=== PATIENT | female | born 1945 | race Caucasian/White ===

== ENCOUNTER 2017-03-08 14:39 | Emergency (ER) | payer OTHER ==
[~2017-03-08] VITALS: Ht 152.4 cm; Wt 46.7 kg
[~2017-03-08 14:39] MED LIST: ALEN70TA3 PO; AZAT50TA18 PO; BUDESONIDE PO; FOLI-43 PO; FURO20TA4 PO; PRO40 PO; QUET50TA13 PO; SPIR50TA26 PO; ZOLP10TA2 PO; [UNRECOGNIZED DRUG - CODE] PO; [UNRECOGNIZED DRUG - OTHER] PO
[2017-03-08 14:41] VITALS: BP_SYST 150
[2017-03-08] MEDS ORDERED: NACL 0.9% 1,000 ML IV ONE (15:21)
[2017-03-08] MEDS ORDERED: ONDANSETRON HCL 4 MG/2 ML VIAL IVP ONE (15:30)
[2017-03-08 16:00] LABS: HEMATOCRIT 41.4 % (36-48); HEMOGLOBIN 13.9 g/dL (12.0-16.0); MEAN CORPUSCULAR HEMOGLOBIN 34 pg (27-31); MEAN CORPUSCULAR HGB CONC 34 % (32-36); MEAN CORPUSCULAR VOLUME 100 fL (79.0-98.0); RED BLOOD CELL COUNT(AUTO) 4.12 MIL/uL (4.2-6.2); RED CELL DISTRIBUTION WIDTH 14.1 % (9.0-15.0)
[2017-03-08 16:02] LABS: CALCIUM 9.6 mg/dL (8.4-11.0); CREATININE 0.97 mg/dL (0.55-1.30); POTASSIUM 3.6 mmol/L (3.5-5.1)
[2017-03-08 16:04] LABS: PROTHROMBIN TIME 10.8 SECS (9.5-12.5)
[2017-03-08 16:07] LABS: ALBUMIN 3.1 g/dL (3.4-4.8); TOTAL BILIRUBIN 0.3 mg/dL (0.0-1.0); TOTAL PROTEIN, SERUM 6.9 g/dL (6.4-8.3)
[2017-03-08 16:12] LABS: PLATELET COUNT (AUTO) 77 K/uL (130-430)
[2017-03-08 16:14] LABS: BAND % (MANUAL) 1 % (0-6); BASOPHILS % (MANUAL) 0 % (0-2); EOSINOPHILS % (MANUAL) 0 % (0-7); LYMPHOCYTES % (MANUAL) 25 % (20-46); MONOCYTES % (MANUAL) 5 % (0-11)
[2017-03-08 16:17] LABS: BILIRUBIN,URINE NEGATIVE (NEGATIVE); BLOOD, URINE NEGATIVE (NEGATIVE); CLARITY/URINE CLEAR (CLEAR); COLOR,URINE YELLOW (YELLOW); GLUCOSE,URINE NEGATIVE (NEGATIVE); KETONES,URINE NEGATIVE (NEGATIVE); LEUKOCYTE ESTERASE ,URINE TRACE (NEGATIVE); NITRITE, URINE NEGATIVE (NEGATIVE); PROTEIN URINE NEGATIVE (NEGATIVE); UROBILINOGEN,URINE 0.2 (0.2-1.0)
[2017-03-08 16:26] LABS: BACTERIA,URINE FEW /HPF (None Seen); RBC,URINE NONE SEEN /HPF (0-3)
[2017-03-08 16:27] LABS: MUCUS,URINE None Seen /LPF (None Seen)
[2017-03-08] MEDS ORDERED: MORPHINE 2 MG/ML INJ. SYRINGE IVP ONE (16:30)
[2017-03-08] MEDS ORDERED: HYDROmorphone 1 MG INJ. 1 MG/ML AMPUL IVP ONE (16:30)
[2017-03-08 17:30] VITALS: BP_SYST 141
== END 2017-03-08 17:30 | disposition home or self-care (01) ==
LOC: SED 14:39
DX: R10.13 Epigastric pain (principal); F41.9 Anxiety disorder, unspecified
CPT/HCPCS: 36415; 74176; 80053; 81000; 83690; 83880; 84484; 85007; 85027; 85379; 85610; 85730; 93005; 96361; 96374; 96375; 99285; J1170; J2405; J7030

== ENCOUNTER 2017-06-17 11:21 | Emergency (ER) | payer OTHER ==
[~2017-06-17] VITALS: Ht 152.4 cm; Wt 47.6 kg
[2017-06-17 11:27] VITALS: BP_SYST 142
[2017-06-17 12:02] LABS: HEMATOCRIT 42.1 % (36-48); MEAN CORPUSCULAR HEMOGLOBIN 33 pg (27-31); MEAN CORPUSCULAR HGB CONC 33 % (32-36); MEAN CORPUSCULAR VOLUME 100 fL (79.0-98.0); PLATELET COUNT (AUTO) 72 K/uL (130-430); RED CELL DISTRIBUTION WIDTH 13.3 % (9.0-15.0)
[2017-06-17 12:10] LABS: WHITE BLOOD COUNT (AUTO) 3.7 K/uL (4.8-10.8)
[2017-06-17 12:12] LABS: CREATININE 0.76 mg/dL (0.55-1.30); POTASSIUM 3.4 mmol/L (3.5-5.1)
[2017-06-17 12:17] LABS: ALBUMIN 3.5 g/dL (3.4-4.8); INR 0.9 (0.8-1.2); PROTHROMBIN TIME 10.3 SECS (9.5-12.5); TOTAL BILIRUBIN 0.2 mg/dL (0.0-1.0)
[2017-06-17 12:27] LABS: ATYPICAL LYMPHOCYTES % 0 % (0-0); BAND % (MANUAL) 3 % (0-6); BASOPHILS % (MANUAL) 0 % (0-2); EOSINOPHILS % (MANUAL) 0 % (0-7); LYMPHOCYTES % (MANUAL) 28 % (20-46); MONOCYTES % (MANUAL) 8 % (0-11)
[2017-06-17] MEDS ORDERED: NACL 0.9% 1,000 ML IV ONE (12:30)
[2017-06-17] MEDS ORDERED: MORPHINE 2 MG/ML INJ. SYRINGE IVP ONE ×2 (12:30→14:45)
[2017-06-17] MEDS ORDERED: ONDANSETRON HCL 4 MG/2 ML VIAL IVP ONE ×2 (12:30→14:45)
[2017-06-17] MEDS ORDERED: PIPERACILLIN/TAZO 4.5 GM in NS 100 ML IV ONE (13:45)
[2017-06-17] MEDS ORDERED: VANCOMYCIN HCL 1,000 MG in NS 250 ML IV ONE (13:45)
[2017-06-17] MEDS ORDERED: PIPERACILLIN/TAZOBACTAM 4.5 GM/VIAL (ZOSYN) IV ONE (14:06)
[2017-06-17] MEDS ORDERED: VANCOMYCIN HCL 1000 MG/VIAL IV ONE (14:06)
[2017-06-17] MEDS ORDERED: IOHEXOL 100 ML IV ONE (14:52)
[2017-06-17 17:02] VITALS: BP_SYST 118
== END 2017-06-17 16:50 | disposition home or self-care (01) ==
LOC: SED 11:21
DX: R10.84 Generalized abdominal pain (principal); R19.7 Diarrhea, unspecified; R53.1 Weakness; F32.9 Major depressive disorder, single episode, unspecified; F41.9 Anxiety disorder, unspecified; K21.9 Gastro-esophageal reflux disease without esophagitis; Z79.899 Other long term (current) drug therapy; Z90.49 Acquired absence of other specified parts of digestive tract
CPT/HCPCS: 36415; 71010; 74176; 74177; 76700; 80053; 83605; 83690; 83880; 84484; 85610; 85730; 87040; 93005; 96365; 96368; 96375; 96376; 99285; J2270; J2405; J2543; J3370; J7030; J7050; Q9967

== ENCOUNTER 2017-11-23 16:02 | Emergency (ER) | payer OTHER ==
[~2017-11-23] VITALS: Ht 152.4 cm; Wt 51.3 kg
[2017-11-23 16:07] VITALS: BP_SYST 147
[2017-11-23] MEDS ORDERED: HYDROcodone/ACETAMIN 10-325 MG TAB PO ONE (17:45)
[2017-11-23 18:06] VITALS: BP_SYST 147
== END 2017-11-23 18:06 | disposition home or self-care (01) ==
LOC: SED 16:02
DX: S33.5XXA Sprain of ligaments of lumbar spine, initial encounter (principal); K59.00 Constipation, unspecified; W18.30XA Fall on same level, unspecified, initial encounter; Y93.89 Activity, other specified; Y92.090 Kitchen in other non-institutional residence as the place of occurrence of the external cause; Y99.8 Other external cause status
CPT/HCPCS: 72100-TC; 99284

== ENCOUNTER 2018-03-06 15:55 | Emergency (ER) | payer OTHER ==
[~2018-03-06] VITALS: Ht 152.4 cm; Wt 48.5 kg
[2018-03-06 15:57] VITALS: BP_SYST 134
[2018-03-06] MEDS ORDERED: NACL 0.9% 1,000 ML IV ONE (16:06)
[2018-03-06] MEDS ORDERED: ASPIRIN 81 MG TAB.CHEW PO ONE (16:15)
[2018-03-06 16:40] LABS: BASOPHILS % (AUTO) 0.8 % (0.0-2.0); EOSINOPHILS % (AUTO) 0.2 % (0.0-4.0); HEMOGLOBIN 13.7 g/dL (12.0-16.0); LYMPHOCYTES # (AUTO) 0.5 K/uL (1.0-5.5); LYMPHOCYTES % (AUTO) 12.9 % (20.5-51.5); MEAN CORPUSCULAR HEMOGLOBIN 35 pg (27-31); MEAN CORPUSCULAR HGB CONC 34 % (32-36); MEAN CORPUSCULAR VOLUME 101 fL (79.0-98.0); MONOCYTES # (AUTO) 0.3 K/uL (0.0-1.0); MONOCYTES % (AUTO) 8.3 % (1.7-9.3); NEUTROPHILS % (AUTO) 77.8 % (40.0-70.0); RED BLOOD CELL COUNT(AUTO) 3.97 MIL/uL (4.2-6.2); RED CELL DISTRIBUTION WIDTH 14.1 % (9.0-15.0); WHITE BLOOD COUNT (AUTO) 3.8 K/uL (4.8-10.8)
[2018-03-06 16:43] LABS: BILIRUBIN,URINE NEGATIVE (NEGATIVE); BLOOD, URINE 1+ (NEGATIVE); CLARITY/URINE CLEAR (CLEAR); COLOR,URINE YELLOW (YELLOW); GLUCOSE,URINE NEGATIVE (NEGATIVE); KETONES,URINE TRACE (NEGATIVE); NITRITE, URINE NEGATIVE (NEGATIVE); PH,URINE 5.5 (5.0-8.0); PROTEIN URINE NEGATIVE (NEGATIVE); UROBILINOGEN,URINE 0.2 (0.2-1.0)
[2018-03-06] MEDS ORDERED: ALBUTEROL SULFATE 0.083% 2.5 MG/3 ML VIAL.NEB IH ONE (16:45)
[2018-03-06] MEDS ORDERED: IPRATROPIUM BROM 0.5 MG/2.5 ML VIAL.NEB (ATROVENT) IH ONE (16:45)
[2018-03-06 16:50] LABS: CALCIUM 8.1 mg/dL (8.4-11.0); CREATININE 0.78 mg/dL (0.55-1.30); POTASSIUM 3.7 mmol/L (3.5-5.1)
[2018-03-06 16:53] LABS: PROTHROMBIN TIME 9.9 SECS (9.5-12.5)
[2018-03-06 16:54] LABS: LEUKOCYTE ESTERASE ,URINE TRACE (NEGATIVE)
[2018-03-06 16:56] LABS: BACTERIA,URINE FEW /HPF (None Seen); MUCUS,URINE None Seen /LPF (None Seen); RBC,URINE 0-3 /HPF (0-3)
[2018-03-06 16:56] LABS: ALBUMIN 3.1 g/dL (3.4-4.8); TOTAL BILIRUBIN 0.3 mg/dL (0.0-1.0)
[2018-03-06 17:01] LABS: PLATELET COUNT (AUTO) 74 K/uL (130-430)
[2018-03-06] MEDS ORDERED: LORazepam 2 MG/ML VIAL (FOR ER USE) IVP ONE (17:45)
[2018-03-06 19:05] VITALS: BP_SYST 126
[2018-03-08] MEDS ORDERED: QUET300T2 PO (16:49)
[2018-03-08] MEDS ORDERED: ALPR0.5T96 PO (16:49)
[2018-03-08] MEDS ORDERED: ROPI0.5T PO (16:49)
[2018-03-08] MEDS ORDERED: PRED5TAB PO (16:52)
== END 2018-03-06 19:05 | disposition home or self-care (01) ==
LOC: SED 15:55
DX: F41.9 Anxiety disorder, unspecified (principal); R06.02 Shortness of breath; R94.31 Abnormal electrocardiogram [ECG] [EKG]; K21.9 Gastro-esophageal reflux disease without esophagitis; Z79.899 Other long term (current) drug therapy
CPT/HCPCS: 36415; 71045; 80053; 81000; 82150; 82550; 83690; 84484; 85025; 85610; 85730; 93005; 94640; 96374; 99285; J2060; J7030; J7613

== ENCOUNTER 2018-03-14 09:16 | Emergency (ER) | payer OTHER ==
[~2018-03-14] VITALS: Ht 152.4 cm; Wt 49.0 kg
[~2018-03-14 09:16] MED LIST changes: +ALPR0.5T96 PO; -BUDESONIDE PO; -FURO20TA4 PO; +PRED5TAB PO; +QUET300T2 PO; -QUET50TA13 PO; +ROPI0.5T PO; -[UNRECOGNIZED DRUG - OTHER] PO
[2018-03-14 09:18] VITALS: BP_SYST 124
[2018-03-14] MEDS ORDERED: NACL 0.9% 1,000 ML IV ONE (10:00)
[2018-03-14] MEDS ORDERED: ASPIRIN 81 MG TAB.CHEW PO ONE (10:00)
[2018-03-14 10:23] LABS: BASOPHILS # (AUTO) 0.1 K/uL (0.0-0.2); EOSINOPHILS # (AUTO) 0.2 K/uL (0.0-0.4); EOSINOPHILS % (AUTO) 2.6 % (0.0-4.0); HEMATOCRIT 43.2 % (36-48); HEMOGLOBIN 14.4 g/dL (12.0-16.0); LYMPHOCYTES # (AUTO) 1.3 K/uL (1.0-5.5); MEAN CORPUSCULAR HEMOGLOBIN 34 pg (27-31); MEAN CORPUSCULAR HGB CONC 33 % (32-36); MEAN CORPUSCULAR VOLUME 101 fL (79.0-98.0); MONOCYTES # (AUTO) 0.7 K/uL (0.0-1.0); NEUTROPHILS # (AUTO) 3.7 K/uL (1.8-7.7); NEUTROPHILS % (AUTO) 61.4 % (40.0-70.0); PLATELET COUNT (AUTO) 107 K/uL (130-430); RED BLOOD CELL COUNT(AUTO) 4.28 MIL/uL (4.2-6.2); RED CELL DISTRIBUTION WIDTH 14.1 % (9.0-15.0)
[2018-03-14 10:37] LABS: CALCIUM 8.1 mg/dL (8.4-11.0); CREATININE 0.64 mg/dL (0.55-1.30); POTASSIUM 3.6 mmol/L (3.5-5.1)
[2018-03-14 10:40] LABS: PROTHROMBIN TIME 9.7 SECS (9.5-12.5)
[2018-03-14 10:41] LABS: ALBUMIN 2.9 g/dL (3.4-4.8); TOTAL BILIRUBIN 0.4 mg/dL (0.0-1.0)
[2018-03-14 11:16] VITALS: BP_SYST 123
[2018-03-17] MEDS ORDERED: FURO-150 PO (15:43)
== END 2018-03-14 11:40 | disposition home or self-care (01) ==
LOC: SED 09:16
DX: K75.4 Autoimmune hepatitis (principal); K52.9 Noninfective gastroenteritis and colitis, unspecified; R53.1 Weakness; F41.9 Anxiety disorder, unspecified; Z90.49 Acquired absence of other specified parts of digestive tract
CPT/HCPCS: 36415; 71045; 80053; 82272; 82550; 83880; 84484; 85025; 85610; 85730; 86886; 86900; 86901; 93005; 99285; J7030

== ENCOUNTER 2018-03-21 22:53 | Inpatient (IN) | payer OTHER ==
[~2018-03-21] VITALS: Ht 152.4 cm; Wt 43.1 kg
[~2018-03-21 22:53] MED LIST changes: +FURO-150 PO
[2018-03-21 23:00] VITALS: BP_SYST 123
[2018-03-21] MEDS ORDERED: NACL 0.9% 1,000 ML IV ONE (23:45)
[2018-03-21] MEDS ORDERED: ONDANSETRON HCL 4 MG/2 ML VIAL IVP ONE (23:45)
[2018-03-22] VITALS (7 sets, daily range): BP systolic 106–132
[2018-03-22 00:06] LABS: BASOPHILS # (AUTO) 0.1 K/uL (0.0-0.2); BASOPHILS % (AUTO) 2.7 % (0.0-2.0); EOSINOPHILS # (AUTO) 0.1 K/uL (0.0-0.4); EOSINOPHILS % (AUTO) 2.4 % (0.0-4.0); HEMATOCRIT 40.2 % (36-48); HEMOGLOBIN 13.5 g/dL (12.0-16.0); LYMPHOCYTES # (AUTO) 2.1 K/uL (1.0-5.5); LYMPHOCYTES % (AUTO) 42.3 % (20.5-51.5); MEAN CORPUSCULAR HEMOGLOBIN 33 pg (27-31); MEAN CORPUSCULAR HGB CONC 34 % (32-36); MEAN CORPUSCULAR VOLUME 99 fL (79.0-98.0); MONOCYTES # (AUTO) 0.6 K/uL (0.0-1.0); MONOCYTES % (AUTO) 11.3 % (1.7-9.3); NEUTROPHILS % (AUTO) 41.3 % (40.0-70.0); PLATELET COUNT (AUTO) 155 K/uL (130-430); RED BLOOD CELL COUNT(AUTO) 4.06 MIL/uL (4.2-6.2); RED CELL DISTRIBUTION WIDTH 13.7 % (9.0-15.0); WHITE BLOOD COUNT (AUTO) 4.9 K/uL (4.8-10.8)
[2018-03-22 00:18] LABS: CALCIUM 8.4 mg/dL (8.4-11.0); CREATININE 0.69 mg/dL (0.55-1.30)
[2018-03-22 00:24] LABS: ALBUMIN 3.3 g/dL (3.4-4.8); TOTAL BILIRUBIN 0.6 mg/dL (0.0-1.0)
[2018-03-22 00:38] LABS: POTASSIUM 2.6 mmol/L (3.5-5.1)
[2018-03-22] MEDS ORDERED: KCL 20 mEq in 100 mL (PREMIX) 100 ML IV ONE (00:45)
[2018-03-22] MEDS ORDERED: cefTRIAXone 1 GM in D5W 50 ML IV ONE ×2 (01:15→04:30)
[2018-03-22] MEDS ORDERED: cefTRIAXone 1 GM VIAL ONE (01:22)
[2018-03-22] MEDS ORDERED: KCL 40 mEq in 100 mL (PREMIX) 100 ML IV ONE (01:45)
[2018-03-22 01:59] LABS: BILIRUBIN,URINE NEGATIVE (NEGATIVE); BLOOD, URINE NEGATIVE (NEGATIVE); CLARITY/URINE CLEAR (CLEAR); COLOR,URINE YELLOW (YELLOW); GLUCOSE,URINE NEGATIVE (NEGATIVE); KETONES,URINE NEGATIVE (NEGATIVE); LEUKOCYTE ESTERASE ,URINE NEGATIVE (NEGATIVE); NITRITE, URINE NEGATIVE (NEGATIVE); PROTEIN URINE NEGATIVE (NEGATIVE); UROBILINOGEN,URINE 0.2 (0.2-1.0)
[2018-03-22] MEDS ORDERED: ZOLPIDEM TARTRATE 5 MG TABLET PO ONE (04:00)
[2018-03-22] MEDS ORDERED: QUEtiapine FUMARATE 100 MG TABLET PO ONE (04:00)
[2018-03-22] MEDS ORDERED: ALBUTEROL SULFATE 0.083% 2.5 MG/3 ML VIAL.NEB INH PRN (04:30)
[2018-03-22] MEDS: NACL 0.9% 1,000 ML IV SCH ×3 (05:27→23:52)
[2018-03-22] MEDS ORDERED: DILTIAZEM HCL 30 MG TABLET PO ONE (05:45)
[2018-03-22 09:24] LABS: HEMATOCRIT 37.5 % (36-48); MEAN CORPUSCULAR HEMOGLOBIN 35 pg (27-31); MEAN CORPUSCULAR HGB CONC 35 % (32-36); MEAN CORPUSCULAR VOLUME 100 fL (79.0-98.0); PLATELET COUNT (AUTO) 103 K/uL (130-430); RED BLOOD CELL COUNT(AUTO) 3.76 MIL/uL (4.2-6.2); RED CELL DISTRIBUTION WIDTH 13.5 % (9.0-15.0); WHITE BLOOD COUNT (AUTO) 3.4 K/uL (4.8-10.8)
[2018-03-22 09:47] LABS: ALBUMIN 2.8 g/dL (3.4-4.8); CALCIUM 7.9 mg/dL (8.4-11.0); CREATININE 0.6 mg/dL (0.55-1.30); POTASSIUM 3.8 mmol/L (3.5-5.1); TOTAL BILIRUBIN 0.4 mg/dL (0.0-1.0)
[2018-03-22 10:28] LABS: BAND % (MANUAL) 0 % (0-6); EOSINOPHILS % (MANUAL) 1 % (0-7); LYMPHOCYTES % (MANUAL) 50 % (20-46); MONOCYTES % (MANUAL) 6 % (0-11)
[2018-03-22 10:29] LABS: BASOPHILS % (MANUAL) 0 % (0-2)
[2018-03-22] MEDS: MORPHINE 2 MG/ML INJ. SYRINGE IVP PRN ×2 (10:47→14:55)
[2018-03-22] MEDS ORDERED: SPIRONOLACTONE 50 MG TABLET (ALDACTONE) PO SCH (14:00)
[2018-03-22] MEDS ORDERED: FUROSEMIDE 20 MG TABLET PO SCH (14:00)
[2018-03-22] MEDS ORDERED: azaTHIOprine 50 MG TABLET PO ONE (14:15)
[2018-03-22] MEDS ORDERED: PREDNISONE 5 MG TABLET PO ONE (14:15)
[2018-03-22] MEDS ORDERED: FOLIC ACID 1 MG TABLET PO ONE (14:15)
[2018-03-22] MEDS: ALPRAZolam 0.25 MG TABLET PO SCH ×2 (14:55→21:53)
[2018-03-22] MEDS: QUEtiapine FUMARATE 100 MG TABLET PO SCH (21:53)
[2018-03-22] MEDS: roPINIRole HCL 0.25 MG ( REQUIP )TABLET PO SCH (21:54)
[2018-03-22] MEDS: ZOLPIDEM TARTRATE 5 MG TABLET PO SCH (21:54)
[2018-03-23 01:33] VITALS: BP_SYST 103
[2018-03-23] MEDS: PANTOPRAZOLE SODIUM 40 MG TAB PO SCH (06:00)
[2018-03-23 07:12] LABS: BASOPHILS % (AUTO) 1.1 % (0.0-2.0); EOSINOPHILS # (AUTO) 0.1 K/uL (0.0-0.4); EOSINOPHILS % (AUTO) 2.9 % (0.0-4.0); HEMATOCRIT 34.5 % (36-48); HEMOGLOBIN 11.4 g/dL (12.0-16.0); LYMPHOCYTES # (AUTO) 1.1 K/uL (1.0-5.5); LYMPHOCYTES % (AUTO) 35.8 % (20.5-51.5); MEAN CORPUSCULAR HEMOGLOBIN 33 pg (27-31); MEAN CORPUSCULAR HGB CONC 33 % (32-36); MEAN CORPUSCULAR VOLUME 101 fL (79.0-98.0); MONOCYTES # (AUTO) 0.3 K/uL (0.0-1.0); MONOCYTES % (AUTO) 10.6 % (1.7-9.3); NEUTROPHILS # (AUTO) 1.6 K/uL (1.8-7.7); NEUTROPHILS % (AUTO) 49.6 % (40.0-70.0); PLATELET COUNT (AUTO) 90 K/uL (130-430); RED BLOOD CELL COUNT(AUTO) 3.42 MIL/uL (4.2-6.2); RED CELL DISTRIBUTION WIDTH 13.4 % (9.0-15.0); WHITE BLOOD COUNT (AUTO) 3.1 K/uL (4.8-10.8)
[2018-03-23 07:14] LABS: ALBUMIN 2.6 g/dL (3.4-4.8); CALCIUM 7.7 mg/dL (8.4-11.0); CREATININE 0.55 mg/dL (0.55-1.30); POTASSIUM 3.5 mmol/L (3.5-5.1); TOTAL BILIRUBIN 0.4 mg/dL (0.0-1.0)
[2018-03-23 08:06] VITALS: BP_SYST 126
[2018-03-23] MEDS: ALPRAZolam 0.25 MG TABLET PO SCH ×3 (09:00→21:18)
[2018-03-23] MEDS ORDERED: fentaNYL CITRATE/PF 100 MCG/2 ML AMP ONE ×2 (10:04→13:39)
[2018-03-23] MEDS ORDERED: SIMETHICONE 40 MG/0.6 ML ML ONE (10:04)
[2018-03-23] MEDS ORDERED: MIDAZOLAM HCL 5 MG/5 ML VIAL ONE (10:05)
[2018-03-23] MEDS: NACL 0.9% 1,000 ML IV SCH ×2 (10:55→20:20)
[2018-03-23 12:53] VITALS: BP_SYST 137
[2018-03-23] MEDS ORDERED: DIPHENHYDRAMINE INJ 50 MG/ML VIAL ONE (14:20)
[2018-03-23] MEDS ORDERED: DIATR MEGLU/DIATRIZ SOD 30 ML SOLUTION PO ONE (14:41)
[2018-03-23] MEDS: PREDNISONE 5 MG TABLET PO SCH (15:22)
[2018-03-23] MEDS: azaTHIOprine 50 MG TABLET PO SCH (15:27)
[2018-03-23] MEDS: FOLIC ACID 1 MG TABLET PO SCH (15:27)
[2018-03-23 16:02] VITALS: BP_SYST 138
[2018-03-23] MEDS ORDERED: IOHEXOL 100 ML IV ONE (16:44)
[2018-03-23] MEDS: SUCRALFATE 1 GM TABLET PO SCH ×2 (17:00→17:22)
[2018-03-23] MEDS: VANCOMYCIN HCL 250 MG CAPSULE PO SCH (17:22)
[2018-03-23 20:00] VITALS: BP_SYST 151
[2018-03-23] MEDS: roPINIRole HCL 0.25 MG ( REQUIP )TABLET PO SCH (21:18)
[2018-03-23] MEDS: QUEtiapine FUMARATE 100 MG TABLET PO SCH (21:18)
[2018-03-23] MEDS: ZOLPIDEM TARTRATE 5 MG TABLET PO SCH (23:24)
[2018-03-23 23:50] VITALS: BP_SYST 134
[2018-03-24] MEDS: VANCOMYCIN HCL 250 MG CAPSULE PO SCH ×5 (00:48→23:07)
[2018-03-24] MEDS: NACL 0.9% 1,000 ML IV SCH ×2 (02:44→13:33)
[2018-03-24] MEDS ORDERED: FOSAMAX 70 MG PO SCH (06:00)
[2018-03-24] MEDS: SUCRALFATE 1 GM TABLET PO SCH ×3 (06:33→17:26)
[2018-03-24] MEDS: PANTOPRAZOLE SODIUM 40 MG TAB PO SCH (06:33)
[2018-03-24] MEDS: PREDNISONE 5 MG TABLET PO SCH (09:00)
[2018-03-24] MEDS: FOLIC ACID 1 MG TABLET PO SCH (09:00)
[2018-03-24] MEDS: ALPRAZolam 0.25 MG TABLET PO SCH ×3 (09:00→22:36)
[2018-03-24] MEDS: azaTHIOprine 50 MG TABLET PO SCH (09:00)
[2018-03-24 09:01] VITALS: BP_SYST 127
[2018-03-24] MEDS: MORPHINE 4 MG/ML INJ. SYRINGE IVP PRN ×2 (09:46→16:20)
[2018-03-24 11:24] LABS: EOSINOPHILS # (AUTO) 0.1 K/uL (0.0-0.4); HEMATOCRIT 36.2 % (36-48); HEMOGLOBIN 12.2 g/dL (12.0-16.0); LYMPHOCYTES # (AUTO) 0.7 K/uL (1.0-5.5); LYMPHOCYTES % (AUTO) 19.2 % (20.5-51.5); MEAN CORPUSCULAR HEMOGLOBIN 34 pg (27-31); MEAN CORPUSCULAR HGB CONC 34 % (32-36); MEAN CORPUSCULAR VOLUME 100 fL (79.0-98.0); MONOCYTES # (AUTO) 0.3 K/uL (0.0-1.0); NEUTROPHILS # (AUTO) 2.3 K/uL (1.8-7.7); PLATELET COUNT (AUTO) 85 K/uL (130-430); RED BLOOD CELL COUNT(AUTO) 3.63 MIL/uL (4.2-6.2); RED CELL DISTRIBUTION WIDTH 13.2 % (9.0-15.0); WHITE BLOOD COUNT (AUTO) 3.4 K/uL (4.8-10.8)
[2018-03-24 11:25] LABS: BASOPHILS % (AUTO) 0.1 % (0.0-2.0); NEUTROPHILS % (AUTO) 69.7 % (40.0-70.0)
[2018-03-24 11:28] LABS: CALCIUM 7.7 mg/dL (8.4-11.0); CREATININE 0.53 mg/dL (0.55-1.30); POTASSIUM 3.2 mmol/L (3.5-5.1)
[2018-03-24 11:33] LABS: ALBUMIN 2.7 g/dL (3.4-4.8); TOTAL BILIRUBIN 0.3 mg/dL (0.0-1.0)
[2018-03-24 11:53] VITALS: BP_SYST 131
[2018-03-24] MEDS: metroNIDAZOLE 250 mg/NS 50 ML IV SCH ×2 (15:36→22:39)
[2018-03-24 16:04] VITALS: BP_SYST 123
[2018-03-24 20:00] VITALS: BP_SYST 121
[2018-03-24] MEDS: roPINIRole HCL 0.25 MG ( REQUIP )TABLET PO SCH (22:36)
[2018-03-24] MEDS: ZOLPIDEM TARTRATE 5 MG TABLET PO SCH (22:38)
[2018-03-24] MEDS: QUEtiapine FUMARATE 100 MG TABLET PO SCH (22:38)
[2018-03-25 00:07] VITALS: BP_SYST 133
[2018-03-25] MEDS: NACL 0.9% 1,000 ML IV SCH ×3 (01:24→21:25)
[2018-03-25] MEDS: MORPHINE 4 MG/ML INJ. SYRINGE IVP PRN ×5 (02:35→20:34)
[2018-03-25] MEDS: metroNIDAZOLE 250 mg/NS 50 ML IV SCH ×3 (07:13→21:25)
[2018-03-25] MEDS: PANTOPRAZOLE SODIUM 40 MG TAB PO SCH (07:13)
[2018-03-25] MEDS: VANCOMYCIN HCL 250 MG CAPSULE PO SCH ×4 (07:13→23:59)
[2018-03-25] MEDS: SUCRALFATE 1 GM TABLET PO SCH ×3 (07:14→17:47)
[2018-03-25] MEDS: ALPRAZolam 0.25 MG TABLET PO SCH ×3 (07:54→20:29)
[2018-03-25] MEDS: PREDNISONE 5 MG TABLET PO SCH (07:55)
[2018-03-25] MEDS: azaTHIOprine 50 MG TABLET PO SCH (07:55)
[2018-03-25] MEDS: FOLIC ACID 1 MG TABLET PO SCH (07:55)
[2018-03-25 09:03] VITALS: BP_SYST 137
[2018-03-25 09:56] LABS: BASOPHILS # (AUTO) 0.1 K/uL (0.0-0.2); EOSINOPHILS # (AUTO) 0.1 K/uL (0.0-0.4); EOSINOPHILS % (AUTO) 2.8 % (0.0-4.0); HEMATOCRIT 37.2 % (36-48); HEMOGLOBIN 12.6 g/dL (12.0-16.0); LYMPHOCYTES # (AUTO) 0.9 K/uL (1.0-5.5); LYMPHOCYTES % (AUTO) 27.7 % (20.5-51.5); MEAN CORPUSCULAR HEMOGLOBIN 34 pg (27-31); MEAN CORPUSCULAR HGB CONC 34 % (32-36); MEAN CORPUSCULAR VOLUME 100 fL (79.0-98.0); MONOCYTES # (AUTO) 0.3 K/uL (0.0-1.0); MONOCYTES % (AUTO) 10.2 % (1.7-9.3); NEUTROPHILS % (AUTO) 57.3 % (40.0-70.0); PLATELET COUNT (AUTO) 85 K/uL (130-430); RED BLOOD CELL COUNT(AUTO) 3.71 MIL/uL (4.2-6.2); RED CELL DISTRIBUTION WIDTH 13.4 % (9.0-15.0); WHITE BLOOD COUNT (AUTO) 3.4 K/uL (4.8-10.8)
[2018-03-25 10:07] LABS: CALCIUM 7.8 mg/dL (8.4-11.0); CREATININE 0.54 mg/dL (0.55-1.30)
[2018-03-25 10:12] LABS: ALBUMIN 2.5 g/dL (3.4-4.8); TOTAL BILIRUBIN 0.3 mg/dL (0.0-1.0)
[2018-03-25 12:00] VITALS: BP_SYST 137
[2018-03-25 12:35] VITALS: BP_SYST 123
[2018-03-25 16:23] VITALS: BP_SYST 129
[2018-03-25] MEDS: LIPASE/PROTEASE/AMYLASE 1 CAP PO SCH (17:47)
[2018-03-25 20:08] VITALS: BP_SYST 140
[2018-03-25] MEDS: roPINIRole HCL 0.25 MG ( REQUIP )TABLET PO SCH (20:27)
[2018-03-25] MEDS: QUEtiapine FUMARATE 100 MG TABLET PO SCH (20:28)
[2018-03-25] MEDS: ZOLPIDEM TARTRATE 5 MG TABLET PO SCH (20:32)
[2018-03-25] MEDS: ACETAMINOPHEN 325 MG TABLET PO PRN (20:33)
[2018-03-26 01:10] VITALS: BP_SYST 97
[2018-03-26 01:59] VITALS: BP_SYST 100
[2018-03-26] MEDS: MORPHINE 4 MG/ML INJ. SYRINGE IVP PRN ×4 (04:50→17:28)
[2018-03-26] MEDS: PANTOPRAZOLE SODIUM 40 MG TAB PO SCH (06:05)
[2018-03-26] MEDS: metroNIDAZOLE 250 mg/NS 50 ML IV SCH ×3 (06:05→21:37)
[2018-03-26] MEDS: SUCRALFATE 1 GM TABLET PO SCH ×3 (06:05→17:27)
[2018-03-26] MEDS: VANCOMYCIN HCL 250 MG CAPSULE PO SCH ×3 (06:05→17:27)
[2018-03-26] MEDS: LIPASE/PROTEASE/AMYLASE 1 CAP PO SCH ×3 (08:00→17:27)
[2018-03-26 08:25] VITALS: BP_SYST 132
[2018-03-26] MEDS: NACL 0.9% 1,000 ML IV SCH ×2 (08:47→14:35)
[2018-03-26] MEDS: FOLIC ACID 1 MG TABLET PO SCH (08:47)
[2018-03-26] MEDS: PREDNISONE 5 MG TABLET PO SCH (08:48)
[2018-03-26] MEDS: azaTHIOprine 50 MG TABLET PO SCH (08:49)
[2018-03-26] MEDS: ALPRAZolam 0.25 MG TABLET PO SCH ×3 (08:49→20:08)
[2018-03-26] MEDS: ACETAMINOPHEN 325 MG TABLET PO PRN (10:37)
[2018-03-26 12:28] VITALS: BP_SYST 141
[2018-03-26] MEDS: ONDANSETRON HCL 4 MG/2 ML VIAL IVP PRN (14:27)
[2018-03-26 16:10] VITALS: BP_SYST 134
[2018-03-26 19:05] VITALS: BP_SYST 129
[2018-03-26] MEDS: QUEtiapine FUMARATE 100 MG TABLET PO SCH (20:07)
[2018-03-26] MEDS: roPINIRole HCL 0.25 MG ( REQUIP )TABLET PO SCH (20:08)
[2018-03-26] MEDS: ZOLPIDEM TARTRATE 5 MG TABLET PO SCH (20:47)
[2018-03-27 00:50] VITALS: BP_SYST 92
[2018-03-27] MEDS: VANCOMYCIN HCL 250 MG CAPSULE PO SCH ×5 (01:00→23:52)
[2018-03-27] MEDS: MORPHINE 2 MG/ML INJ. SYRINGE IVP PRN ×4 (01:09→21:40)
[2018-03-27 02:05] VITALS: BP_SYST 97
[2018-03-27] MEDS: ACETAMINOPHEN 325 MG TABLET PO PRN (04:11)
[2018-03-27] MEDS: metroNIDAZOLE 250 mg/NS 50 ML IV SCH ×2 (06:14→13:49)
[2018-03-27] MEDS: SUCRALFATE 1 GM TABLET PO SCH ×3 (06:14→16:56)
[2018-03-27] MEDS: PANTOPRAZOLE SODIUM 40 MG TAB PO SCH (06:14)
[2018-03-27] MEDS: NACL 0.9% 1,000 ML IV SCH ×2 (06:20→13:49)
[2018-03-27 08:05] LABS: CREATININE 0.51 mg/dL (0.55-1.30)
[2018-03-27 08:10] VITALS: BP_SYST 128
[2018-03-27 08:13] LABS: CALCIUM 6.1 mg/dL (8.4-11.0); POTASSIUM 2.6 mmol/L (3.5-5.1)
[2018-03-27] MEDS ORDERED: POTASSIUM CHLORIDE 20 MEQ/PKT PACKET PO ONE (08:30)
[2018-03-27] MEDS ORDERED: KCL 40 mEq in 100 mL (PREMIX) 100 ML IV ONE (08:30)
[2018-03-27] MEDS: azaTHIOprine 50 MG TABLET PO SCH (09:00)
[2018-03-27] MEDS: ALPRAZolam 0.25 MG TABLET PO SCH ×3 (09:10→20:28)
[2018-03-27] MEDS: LIPASE/PROTEASE/AMYLASE 1 CAP PO SCH ×3 (09:10→18:25)
[2018-03-27] MEDS: PREDNISONE 5 MG TABLET PO SCH (09:10)
[2018-03-27] MEDS: FOLIC ACID 1 MG TABLET PO SCH (09:10)
[2018-03-27] MEDS: KCL 20 mEq in 100 mL (PREMIX) 100 ML IV SCH ×2 (09:27→12:10)
[2018-03-27 09:40] LABS: ALBUMIN 1.7 g/dL (3.4-4.8); BILIRUBIN,DIRECT 0.1 mg/dL (0.0-0.3); PHOSPHORUS 4.5 mg/dL (2.7-4.5); TOTAL BILIRUBIN 0.2 mg/dL (0.0-1.0)
[2018-03-27] MEDS ORDERED: CALCIUM GLUCONATE 2 GM in NS 100 ML IV ONE (10:00)
[2018-03-27] MEDS: MORPHINE 4 MG/ML INJ. SYRINGE IVP PRN ×2 (10:30→18:25)
[2018-03-27 11:24] VITALS: BP_SYST 104
[2018-03-27] MEDS: ONDANSETRON HCL 4 MG/2 ML VIAL IVP PRN (13:50)
[2018-03-27 15:29] VITALS: BP_SYST 119
[2018-03-27 19:10] VITALS: BP_SYST 128
[2018-03-27] MEDS: QUEtiapine FUMARATE 100 MG TABLET PO SCH (20:28)
[2018-03-27] MEDS: roPINIRole HCL 0.25 MG ( REQUIP )TABLET PO SCH (20:39)
[2018-03-27] MEDS: ZOLPIDEM TARTRATE 5 MG TABLET PO SCH (21:52)
[2018-03-28 00:19] VITALS: BP_SYST 98
[2018-03-28 05:52] LABS: BASOPHILS % (AUTO) 0.7 % (0.0-2.0); EOSINOPHILS # (AUTO) 0.1 K/uL (0.0-0.4); HEMATOCRIT 33.1 % (36-48); HEMOGLOBIN 11.3 g/dL (12.0-16.0); LYMPHOCYTES # (AUTO) 1.2 K/uL (1.0-5.5); LYMPHOCYTES % (AUTO) 29.3 % (20.5-51.5); MEAN CORPUSCULAR HEMOGLOBIN 34 pg (27-31); MEAN CORPUSCULAR HGB CONC 34 % (32-36); MEAN CORPUSCULAR VOLUME 100 fL (79.0-98.0); MONOCYTES # (AUTO) 0.5 K/uL (0.0-1.0); NEUTROPHILS # (AUTO) 2.2 K/uL (1.8-7.7); PLATELET COUNT (AUTO) 73 K/uL (130-430); RED BLOOD CELL COUNT(AUTO) 3.32 MIL/uL (4.2-6.2); RED CELL DISTRIBUTION WIDTH 13.3 % (9.0-15.0)
[2018-03-28] MEDS: NACL 0.9% 1,000 ML IV SCH ×3 (06:07→23:07)
[2018-03-28] MEDS: PANTOPRAZOLE SODIUM 40 MG TAB PO SCH (06:07)
[2018-03-28] MEDS: SUCRALFATE 1 GM TABLET PO SCH ×3 (06:07→16:32)
[2018-03-28] MEDS: VANCOMYCIN HCL 250 MG CAPSULE PO SCH ×4 (06:07→23:07)
[2018-03-28] MEDS: MORPHINE 2 MG/ML INJ. SYRINGE IVP PRN ×2 (06:49→12:47)
[2018-03-28 07:59] VITALS: BP_SYST 141
[2018-03-28 08:00] VITALS: BP_SYST 141
[2018-03-28] MEDS: azaTHIOprine 50 MG TABLET PO SCH (09:00)
[2018-03-28 09:03] LABS: ALBUMIN 2.4 g/dL (3.4-4.8); CALCIUM 8.4 mg/dL (8.4-11.0); CREATININE 0.6 mg/dL (0.55-1.30); TOTAL BILIRUBIN 0.2 mg/dL (0.0-1.0)
[2018-03-28] MEDS: ALPRAZolam 0.25 MG TABLET PO SCH ×3 (09:06→20:16)
[2018-03-28] MEDS: FOLIC ACID 1 MG TABLET PO SCH (09:06)
[2018-03-28] MEDS: PREDNISONE 5 MG TABLET PO SCH (09:07)
[2018-03-28] MEDS: LIPASE/PROTEASE/AMYLASE 1 CAP PO SCH ×3 (09:07→18:05)
[2018-03-28] MEDS ORDERED: POTASSIUM CHLORIDE 20 MEQ/PKT PACKET PO ONE (10:00)
[2018-03-28] MEDS ORDERED: LIDOCAINE JECT IV ONE (11:00)
[2018-03-28] MEDS ORDERED: POTASSIUM CHLORIDE IV ONE (11:00)
[2018-03-28] MEDS ORDERED: NS IV ONE (11:00)
[2018-03-28 12:34] VITALS: BP_SYST 144
[2018-03-28 16:20] VITALS: BP_SYST 130
[2018-03-28] MEDS: MORPHINE 4 MG/ML INJ. SYRINGE IVP PRN (16:32)
[2018-03-28 20:00] VITALS: BP_SYST 130
[2018-03-28] MEDS: QUEtiapine FUMARATE 100 MG TABLET PO SCH (20:16)
[2018-03-28] MEDS: roPINIRole HCL 0.25 MG ( REQUIP )TABLET PO SCH (20:16)
[2018-03-28] MEDS: ZOLPIDEM TARTRATE 5 MG TABLET PO SCH (21:01)
[2018-03-29 00:40] VITALS: BP_SYST 112
[2018-03-29] MEDS: MORPHINE 4 MG/ML INJ. SYRINGE IVP PRN ×3 (04:23→13:29)
[2018-03-29] MEDS: PANTOPRAZOLE SODIUM 40 MG TAB PO SCH (06:08)
[2018-03-29] MEDS: SUCRALFATE 1 GM TABLET PO SCH ×3 (06:08→16:09)
[2018-03-29] MEDS: VANCOMYCIN HCL 250 MG CAPSULE PO SCH ×3 (06:08→18:22)
[2018-03-29] MEDS: ALPRAZolam 0.25 MG TABLET PO SCH ×2 (08:24→14:26)
[2018-03-29] MEDS: FOLIC ACID 1 MG TABLET PO SCH (08:24)
[2018-03-29] MEDS: PREDNISONE 5 MG TABLET PO SCH (08:24)
[2018-03-29] MEDS: LIPASE/PROTEASE/AMYLASE 1 CAP PO SCH ×3 (08:24→18:22)
[2018-03-29] MEDS: azaTHIOprine 50 MG TABLET PO SCH (08:25)
[2018-03-29] MEDS: NACL 0.9% 1,000 ML IV SCH ×2 (08:38→16:10)
[2018-03-29 09:27] LABS: BASOPHILS % (AUTO) 0.4 % (0.0-2.0); EOSINOPHILS # (AUTO) 0.1 K/uL (0.0-0.4); EOSINOPHILS % (AUTO) 2.1 % (0.0-4.0); HEMATOCRIT 39.8 % (36-48); HEMOGLOBIN 13.5 g/dL (12.0-16.0); LYMPHOCYTES # (AUTO) 1.2 K/uL (1.0-5.5); LYMPHOCYTES % (AUTO) 31.9 % (20.5-51.5); MEAN CORPUSCULAR HEMOGLOBIN 34 pg (27-31); MEAN CORPUSCULAR HGB CONC 34 % (32-36); MEAN CORPUSCULAR VOLUME 101 fL (79.0-98.0); MONOCYTES # (AUTO) 0.4 K/uL (0.0-1.0); MONOCYTES % (AUTO) 11.5 % (1.7-9.3); NEUTROPHILS # (AUTO) 2.1 K/uL (1.8-7.7); NEUTROPHILS % (AUTO) 54.1 % (40.0-70.0); PLATELET COUNT (AUTO) 67 K/uL (130-430); RED BLOOD CELL COUNT(AUTO) 3.96 MIL/uL (4.2-6.2); RED CELL DISTRIBUTION WIDTH 13.3 % (9.0-15.0); WHITE BLOOD COUNT (AUTO) 3.8 K/uL (4.8-10.8)
[2018-03-29 09:34] LABS: ALBUMIN 2.9 g/dL (3.4-4.8); CALCIUM 8.8 mg/dL (8.4-11.0); CREATININE 0.56 mg/dL (0.55-1.30); POTASSIUM 3.9 mmol/L (3.5-5.1); TOTAL BILIRUBIN 0.4 mg/dL (0.0-1.0)
[2018-03-29 11:28] VITALS: BP_SYST 129
[2018-03-29 15:29] VITALS: BP_SYST 124
[2018-03-29 15:39] VITALS: BP_SYST 124
== END 2018-03-29 18:38 | disposition home or self-care (01) | DRG 371 ==
LOC: SED 22:53 → STU 03-22 01:43 → SMU 03-22 18:12
PROVIDERS: ADMIT Internal Medicine; ATTEND Internal Medicine
PROC: 0DB78ZX Excision of Stomach, Pylorus, Via Natural or Artificial Opening Endoscopic, Diagnostic (ICD-10-PCS; 2018-03-23)
PROC: 0DB98ZX Excision of Duodenum, Via Natural or Artificial Opening Endoscopic, Diagnostic (ICD-10-PCS; principal; 2018-03-23 13:15)
DX: A04.72 Enterocolitis due to Clostridium difficile, not specified as recurrent (principal); E43 Unspecified severe protein-calorie malnutrition; N39.0 Urinary tract infection, site not specified; Z68.1 Body mass index [BMI] 19.9 or less, adult; K75.4 Autoimmune hepatitis; I10 Essential (primary) hypertension; K21.9 Gastro-esophageal reflux disease without esophagitis; K86.89 Other specified diseases of pancreas; K29.80 Duodenitis without bleeding; F32.9 Major depressive disorder, single episode, unspecified; F41.9 Anxiety disorder, unspecified; E87.6 Hypokalemia; K25.9 Gastric ulcer, unspecified as acute or chronic, without hemorrhage or perforation; K29.60 Other gastritis without bleeding; K44.9 Diaphragmatic hernia without obstruction or gangrene; Z87.440 Personal history of urinary (tract) infections; Z79.899 Other long term (current) drug therapy; Z90.49 Acquired absence of other specified parts of digestive tract
CPT/HCPCS: 36415; 43239; 80048; 80053; 80076; 81003; 82306; 83605; 83690-TC; 83735-TC; 83970; 84100-TC; 85007; 85025; 85027; 87040-TC; 87081; 87230-TC; 88305; 88312; 88313; 93005; 96365; 96368; 96375; 99285; J0610; J0696; J1200; J2250; J2270; J2405; J3010; J3480; J3490; J7030; J7050; J7500; J7512; Q9964; Q9967

== ENCOUNTER 2018-05-11 16:41 | Inpatient (IN) | payer OTHER ==
[~2018-05-11] VITALS: Ht 152.4 cm; Wt 45.4 kg
[~2018-05-11 16:41] MED LIST changes: -ALEN70TA3 PO; +ALPR0.5T PO; -ALPR0.5T96 PO; -AZAT50TA18 PO; -SPIR50TA26 PO
[2018-05-11 16:45] VITALS: BP_SYST 128
[2018-05-11] MEDS ORDERED: LORazepam 2 MG/ML VIAL (FOR ER USE) IVP ONE (17:00)
[2018-05-11] MEDS ORDERED: ASPIRIN 81 MG TAB.CHEW PO ONE (17:00)
[2018-05-11 17:14] LABS: BASOPHILS # (AUTO) 0.1 K/uL (0.0-0.2); BASOPHILS % (AUTO) 1.4 % (0.0-2.0); EOSINOPHILS % (AUTO) 0.4 % (0.0-4.0); HEMATOCRIT 43.4 % (36-48); HEMOGLOBIN 14.6 g/dL (12.0-16.0); LYMPHOCYTES # (AUTO) 0.7 K/uL (1.0-5.5); LYMPHOCYTES % (AUTO) 14.7 % (20.5-51.5); MEAN CORPUSCULAR HEMOGLOBIN 33 pg (27-31); MEAN CORPUSCULAR HGB CONC 34 % (32-36); MEAN CORPUSCULAR VOLUME 97 fL (79.0-98.0); MONOCYTES # (AUTO) 0.1 K/uL (0.0-1.0); MONOCYTES % (AUTO) 3.1 % (1.7-9.3); NEUTROPHILS # (AUTO) 3.9 K/uL (1.8-7.7); NEUTROPHILS % (AUTO) 80.4 % (40.0-70.0); PLATELET COUNT (AUTO) 123 K/uL (130-430); RED BLOOD CELL COUNT(AUTO) 4.46 MIL/uL (4.2-6.2); WHITE BLOOD COUNT (AUTO) 4.8 K/uL (4.8-10.8)
[2018-05-11 17:31] LABS: CALCIUM 8.9 mg/dL (8.4-11.0); CREATININE 0.69 mg/dL (0.55-1.30); POTASSIUM 3.3 mmol/L (3.5-5.1)
[2018-05-11 17:34] LABS: INR 1.1 (0.8-1.2); PROTHROMBIN TIME 10.9 SECS (9.5-12.5)
[2018-05-11 17:37] LABS: ALBUMIN 3.6 g/dL (3.4-4.8); TOTAL BILIRUBIN 0.5 mg/dL (0.0-1.0)
[2018-05-11 18:01] LABS: CKMB RELATIVE INDEX 2.2 (0.0-2.9); CREATINE KINASE MB 7.2 ng/mL (0-3.6)
[2018-05-11] MEDS ORDERED: MORPHINE 2 MG/ML INJ. SYRINGE IVP ONE (18:15)
[2018-05-11] MEDS ORDERED: PROCHLORPERAZINE EDISYLATE 10 MG/2 ML VIAL IVP ONE (18:15)
[2018-05-11] MEDS ORDERED: DIPHENHYDRAMINE INJ 50 MG/ML VIAL IVP ONE (18:45)
[2018-05-11] MEDS ORDERED: DIPHENHYDRAMINE INJ 50 MG/ML VIAL ONE (18:51)
[2018-05-11 19:48] VITALS: BP_SYST 113
[2018-05-11] MEDS: ALPRAZolam 0.25 MG TABLET PO SCH (21:00)
[2018-05-11] MEDS ORDERED: ACETAMINOPHEN 325 MG TABLET PO PRN (23:15)
[2018-05-11] MEDS ORDERED: HYDROcodone/ACETAMIN 5-325 MG TAB (NORCO/ VICODIN) PO PRN (23:15)
[2018-05-11] MEDS ORDERED: ONDANSETRON HCL 4 MG/2 ML VIAL IVP PRN (23:15)
[2018-05-11] MEDS ORDERED: ALBUTEROL SULFATE 0.083% 2.5 MG/3 ML VIAL.NEB INH PRN (23:15)
[2018-05-11] MEDS ORDERED: ALPRAZolam 0.25 MG TABLET PO SCH (23:30)
[2018-05-12] VITALS (7 sets, daily range): BP systolic 104–116
[2018-05-12 07:04] LABS: EOSINOPHILS # (AUTO) 0.1 K/uL (0.0-0.4); EOSINOPHILS % (AUTO) 2.9 % (0.0-4.0); HEMATOCRIT 38.1 % (36-48); HEMOGLOBIN 13.3 g/dL (12.0-16.0); LYMPHOCYTES # (AUTO) 1.7 K/uL (1.0-5.5); LYMPHOCYTES % (AUTO) 43.7 % (20.5-51.5); MEAN CORPUSCULAR HEMOGLOBIN 34 pg (27-31); MEAN CORPUSCULAR HGB CONC 35 % (32-36); MEAN CORPUSCULAR VOLUME 99 fL (79.0-98.0); MONOCYTES # (AUTO) 0.5 K/uL (0.0-1.0); MONOCYTES % (AUTO) 13.6 % (1.7-9.3); NEUTROPHILS # (AUTO) 1.5 K/uL (1.8-7.7); NEUTROPHILS % (AUTO) 38.8 % (40.0-70.0); RED BLOOD CELL COUNT(AUTO) 3.86 MIL/uL (4.2-6.2); WHITE BLOOD COUNT (AUTO) 3.8 K/uL (4.8-10.8)
[2018-05-12 07:17] LABS: ANION GAP 9 (5-15); CALCIUM 8.5 mg/dL (8.4-11.0); CHLORIDE 105 mmol/L (98-107); CREATININE 0.62 mg/dL (0.55-1.30); GLUCOSE 99 mg/dL (70-99); SODIUM SERUM 143 mmol/L (136-145); UREA NITROGEN, BLOOD 8 mg/dL (8-21)
[2018-05-12 07:26] LABS: GFR AFRICAN AMERICAN 122 mL/min (>90)
[2018-05-12 07:28] LABS: POTASSIUM 2.7 mmol/L (3.5-5.1)
[2018-05-12 07:37] LABS: ALANINE AMINOTRANSFERASE 20 U/L (12-78); ASPARTATE AMINOTRANSFERASE 38 U/L (10-37); TOTAL BILIRUBIN 0.4 mg/dL (0.0-1.0)
[2018-05-12] MEDS ORDERED: POTASSIUM CHLORIDE 20 MEQ TAB.PRT.SR PO ONE ×2 (08:30→19:51)
[2018-05-12] MEDS ORDERED: KCL 40 mEq in 100 mL (PREMIX) 100 ML IV ONE (08:30)
[2018-05-12 08:59] LABS: CALCIUM 8.7 mg/dL (8.4-11.0); CREATININE 0.81 mg/dL (0.55-1.30)
[2018-05-12] MEDS ORDERED: ASPIRIN 81 MG TAB.CHEW PO SCH (09:00)
[2018-05-12] MEDS ORDERED: POTASSIUM CHLORIDE 40 MEQ in NS 250 ML IV ONE (09:00)
[2018-05-12] MEDS ORDERED: SPIRONOLACTONE 25 MG TABLET (ALDACTONE) PO SCH (09:00)
[2018-05-12] MEDS ORDERED: PANTOPRAZOLE SODIUM 40 MG TAB PO SCH (09:00)
[2018-05-12] MEDS ORDERED: FOLIC ACID 1 MG TABLET PO SCH (09:00)
[2018-05-12] MEDS ORDERED: ENOXAPARIN SODIUM 40 MG/0.4 ML SYRINGE SUBCUT SCH (09:00)
[2018-05-12] MEDS: ALPRAZolam 0.25 MG TABLET PO SCH ×2 (09:17→15:10)
[2018-05-12 09:27] LABS: POTASSIUM 2.9 mmol/L (3.5-5.1)
[2018-05-12 11:02] LABS: PLATELET COUNT (AUTO) 83 K/uL (130-430)
[2018-05-12] MEDS ORDERED: MORPHINE 2 MG/ML INJ. SYRINGE IVP PRN (17:15)
[2018-05-12] MEDS ORDERED: POTASSIUM CHLORIDE 20 MEQ TAB.PRT.SR ONE (17:19)
[2018-05-12] MEDS ORDERED: MORPHINE 2 MG/ML INJ. SYRINGE ONE (17:20)
[2018-05-12 19:17] LABS: CALCIUM 8.2 mg/dL (8.4-11.0); CREATININE 0.71 mg/dL (0.55-1.30); POTASSIUM 4.7 mmol/L (3.5-5.1)
[2018-05-12] MEDS ORDERED: roPINIRole HCL 0.25 MG ( REQUIP )TABLET PO SCH (21:00)
[2018-05-12] MEDS ORDERED: QUEtiapine FUMARATE 100 MG TABLET PO SCH ×2 (21:00)
[2018-05-12] MEDS ORDERED: ZOLPIDEM TARTRATE 5 MG TABLET PO SCH (21:00)
== END 2018-05-12 20:30 | disposition home or self-care (01) | DRG 313 ==
LOC: SED 16:41 → STU 18:57
PROVIDERS: ADMIT Internal Medicine; ATTEND Internal Medicine
DX: R07.89 Other chest pain (principal); K21.9 Gastro-esophageal reflux disease without esophagitis; E87.6 Hypokalemia; F32.9 Major depressive disorder, single episode, unspecified; D69.6 Thrombocytopenia, unspecified; F45.8 Other somatoform disorders; K75.4 Autoimmune hepatitis; G89.29 Other chronic pain; M54.9 Dorsalgia, unspecified; F41.1 Generalized anxiety disorder; Z82.49 Family history of ischemic heart disease and other diseases of the circulatory system; Z79.899 Other long term (current) drug therapy; Z90.49 Acquired absence of other specified parts of digestive tract
CPT/HCPCS: 36415; 71045; 80048; 80053; 82550-TC; 82553-TC; 84484; 85025; 85610-TC; 85730-TC; 93005; 96374; 96375; 99285; J0780; J1200; J1650; J2060; J2270; J3480; J7040; J7050

== ENCOUNTER 2018-07-30 17:44 | Inpatient (IN) | payer OTHER ==
[~2018-07-30] VITALS: Ht 152.4 cm; Wt 51.7 kg
[~2018-07-30 17:44] MED LIST changes: -FURO-150 PO; -PRED5TAB PO; -[UNRECOGNIZED DRUG - CODE] PO
[2018-07-30 17:58] VITALS: BP_SYST 145
[2018-07-30] MEDS ORDERED: ACETAMINOPHEN 500 MG TABLET PO ONE (18:15)
[2018-07-30] MEDS ORDERED: NACL 0.9% 1,000 ML IV ONE (18:15)
[2018-07-30] MEDS ORDERED: ACETAMINOPHEN 500 MG TABLET ONE (18:21)
[2018-07-30] MEDS ORDERED: [UNRECOGNIZED DRUG - CODE] PO (18:33)
[2018-07-30 18:42] LABS: HEMATOCRIT 40.6 % (36-48); HEMOGLOBIN 13.3 g/dL (12.0-16.0); MEAN CORPUSCULAR HEMOGLOBIN 32 pg (27-31); MEAN CORPUSCULAR HGB CONC 33 % (32-36); MEAN CORPUSCULAR VOLUME 97 fL (79.0-98.0); PLATELET COUNT (AUTO) 165 K/uL (130-430); RED BLOOD CELL COUNT(AUTO) 4.19 MIL/uL (4.2-6.2); RED CELL DISTRIBUTION WIDTH 15.6 % (9.0-15.0)
[2018-07-30 18:49] LABS: INR 1.1 (0.8-1.2); PROTHROMBIN TIME 10.6 SECS (9.5-12.5); WHITE BLOOD COUNT (AUTO) 1.1 K/uL (4.8-10.8)
[2018-07-30 18:51] LABS: ATYPICAL LYMPHOCYTES % 6 % (0-0); BAND % (MANUAL) 0 % (0-6); BASOPHILS % (MANUAL) 0 % (0-2); EOSINOPHILS % (MANUAL) 0 % (0-7); LYMPHOCYTES % (MANUAL) 88 % (20-46); MONOCYTES % (MANUAL) 4 % (0-11)
[2018-07-30 18:59] LABS: CREATININE 0.83 mg/dL (0.55-1.30); POTASSIUM 3.8 mmol/L (3.5-5.1)
[2018-07-30] MEDS ORDERED: cefTRIAXone 1 GM in D5W 50 ML IV ONE (19:00)
[2018-07-30 19:03] LABS: TOTAL BILIRUBIN 1.2 mg/dL (0.0-1.0)
[2018-07-30] MEDS ORDERED: cefTRIAXone 1 GM VIAL ONE (19:22)
[2018-07-30 19:34] LABS: BILIRUBIN,URINE NEGATIVE (NEGATIVE); COLOR,URINE YELLOW (YELLOW); GLUCOSE,URINE NEGATIVE (NEGATIVE); KETONES,URINE NEGATIVE (NEGATIVE); NITRITE, URINE POSITIVE (NEGATIVE); PH,URINE 5.5 (5.0-8.0); PROTEIN URINE NEGATIVE (NEGATIVE); UROBILINOGEN,URINE 0.2 (0.2-1.0)
[2018-07-30 19:42] LABS: BLOOD, URINE TRACE (NEGATIVE); CLARITY/URINE HAZY (CLEAR); LEUKOCYTE ESTERASE ,URINE TRACE (NEGATIVE)
[2018-07-30 19:45] LABS: BACTERIA,URINE MANY /HPF (None Seen); MUCUS,URINE None Seen /LPF (None Seen); RBC,URINE 0-3 /HPF (0-3)
[2018-07-30] MEDS ORDERED: ONDANSETRON HCL 4 MG/2 ML VIAL IVP PRN ×2 (20:00→21:23)
[2018-07-30] MEDS ORDERED: FIORCET PO PRN (20:30)
[2018-07-30] MEDS ORDERED: ACETAMINOPHEN 325 MG TABLET PO PRN (21:00)
[2018-07-30] MEDS ORDERED: NACL 0.9% 1,000 ML IV SCH (21:00)
[2018-07-30 21:16] VITALS: BP_SYST 109
[2018-07-30 21:27] VITALS: BP_SYST 109
[2018-07-30] MEDS ORDERED: VANCOMYCIN HCL 1 GM/NS PREMIX 250 ML IV ONE (22:00)
[2018-07-30] MEDS: ALPRAZolam 0.25 MG TABLET PO SCH (22:07)
[2018-07-30] MEDS: metroNIDAZOLE 500 MG TABLET PO SCH (22:18)
[2018-07-30] MEDS: QUEtiapine FUMARATE 100 MG TABLET PO SCH (22:19)
[2018-07-30] MEDS: roPINIRole HCL 0.25 MG ( REQUIP )TABLET PO SCH (22:19)
[2018-07-30] MEDS ORDERED: VANCOMYCIN HCL 1000 MG/VIAL IV ONE (22:53)
[2018-07-30] MEDS ORDERED: CEFEPIME 1 GM/VIAL (MAXIPIME) ONE (22:53)
[2018-07-30] MEDS: CEFEPIME 1 GM in D5W 50 ML IV SCH (23:09)
[2018-07-30 23:54] VITALS: BP_SYST 78
[2018-07-31] VITALS (21 sets, daily range): BP systolic 84–174
[2018-07-31] MEDS ORDERED: NACL 0.9% 1,000 ML IV ONE (00:15)
[2018-07-31] MEDS: ACETAMINOPHEN 325 MG TABLET PO PRN ×3 (00:30→20:50)
[2018-07-31] MEDS ORDERED: FLUCONAZOLE 200 mg/ NS 100 ML IV SCH (01:30)
[2018-07-31] MEDS ORDERED: NOREPINEPHRINE 4 MG/4 ML VIAL IV ONE ×3 (01:54→06:45)
[2018-07-31] MEDS: NOREPINEPHRINE BITARTRATE 4 MG in D5W 246 ML IV PRN ×3 (02:01→13:41)
[2018-07-31] MEDS: NACL 0.9% 1,000 ML IV SCH ×3 (02:02→18:37)
[2018-07-31 06:58] LABS: CALCIUM 7.3 mg/dL (8.4-11.0); CREATININE 0.9 mg/dL (0.55-1.30); POTASSIUM 3.4 mmol/L (3.5-5.1)
[2018-07-31 06:59] LABS: ALBUMIN 2.1 g/dL (3.4-4.8); TOTAL BILIRUBIN 1.4 mg/dL (0.0-1.0)
[2018-07-31 07:01] LABS: HEMATOCRIT 36.9 % (36-48); HEMOGLOBIN 12.1 g/dL (12.0-16.0); MEAN CORPUSCULAR HEMOGLOBIN 32 pg (27-31); MEAN CORPUSCULAR HGB CONC 33 % (32-36); MEAN CORPUSCULAR VOLUME 98 fL (79.0-98.0); PLATELET COUNT (AUTO) 153 K/uL (130-430); RED BLOOD CELL COUNT(AUTO) 3.77 MIL/uL (4.2-6.2); RED CELL DISTRIBUTION WIDTH 15.7 % (9.0-15.0)
[2018-07-31 07:07] LABS: WHITE BLOOD COUNT (AUTO) 1.2 K/uL (4.8-10.8)
[2018-07-31] MEDS: PANTOPRAZOLE SODIUM 40 MG TAB PO SCH (08:52)
[2018-07-31] MEDS: FOLIC ACID 1 MG TABLET PO SCH (08:53)
[2018-07-31] MEDS: metroNIDAZOLE 500 MG TABLET PO SCH ×4 (08:53→20:49)
[2018-07-31] MEDS: ALPRAZolam 0.25 MG TABLET PO SCH ×3 (08:53→20:51)
[2018-07-31] MEDS ORDERED: PANTOPRAZOLE SODIUM 40 MG TAB PO SCH (09:00)
[2018-07-31] MEDS ORDERED: FILGRASTIM 300 MCG/ML VIAL SUBCUT SCH (09:00)
[2018-07-31 09:41] LABS: ATYPICAL LYMPHOCYTES % 7 % (0-0); BASOPHILS % (MANUAL) 0 % (0-2); EOSINOPHILS % (MANUAL) 0 % (0-7); LYMPHOCYTES % (MANUAL) 87 % (20-46); MONOCYTES % (MANUAL) 4 % (0-11)
[2018-07-31] MEDS ORDERED: POTASSIUM CHLORIDE 20 MEQ TAB.PRT.SR PO ONE (09:45)
[2018-07-31] MEDS ORDERED: INSULIN ASPART 100 UNITS/ML, 10 ML VIAL (NovoLOG) SUBCUT PRN (09:45)
[2018-07-31] MEDS ORDERED: DEXTROSE 50%-WATER 50 ML DISP.SYRIN IVP PRN ×2 (10:00)
[2018-07-31] MEDS ORDERED: GLUCOSE 15 GM GEL (in 37.5 GM TUBE) PO PRN ×2 (10:00)
[2018-07-31] MEDS: CEFEPIME 1 GM in D5W 50 ML IV SCH (10:22)
[2018-07-31] MEDS: MORPHINE 2 MG/ML INJ. SYRINGE IVP PRN ×2 (10:30→15:43)
[2018-07-31] MEDS ORDERED: FILGRASTIM 300 MCG/ML VIAL SUBCUT ONE (11:15)
[2018-07-31] MEDS: CEFEPIME 2 GM in D5W 100 ML IV SCH ×2 (13:36→21:32)
[2018-07-31] MEDS: QUEtiapine FUMARATE 100 MG TABLET PO SCH (20:51)
[2018-07-31] MEDS: roPINIRole HCL 0.25 MG ( REQUIP )TABLET PO SCH (20:51)
[2018-07-31] MEDS: ZOLPIDEM TARTRATE 5 MG TABLET PO PRN (20:54)
[2018-07-31] MEDS: VANCOMYCIN HCL 1 GM/NS PREMIX 250 ML IV SCH (22:33)
[2018-08-01] VITALS (24 sets, daily range): BP systolic 104–185
[2018-08-01] MEDS: NACL 0.9% 1,000 ML IV SCH ×3 (01:36→19:52)
[2018-08-01] MEDS: MORPHINE 2 MG/ML INJ. SYRINGE IVP PRN ×3 (05:07→18:37)
[2018-08-01] MEDS: CEFEPIME 2 GM in D5W 100 ML IV SCH ×3 (05:30→21:10)
[2018-08-01 06:52] LABS: ALBUMIN 1.7 g/dL (3.4-4.8); CALCIUM 7.7 mg/dL (8.4-11.0); CREATININE 0.67 mg/dL (0.55-1.30); POTASSIUM 3.5 mmol/L (3.5-5.1)
[2018-08-01 07:06] LABS: HEMATOCRIT 30.1 % (36-48); HEMOGLOBIN 10.2 g/dL (12.0-16.0); MEAN CORPUSCULAR HEMOGLOBIN 32 pg (27-31); MEAN CORPUSCULAR HGB CONC 34 % (32-36); MEAN CORPUSCULAR VOLUME 96 fL (79.0-98.0); PLATELET COUNT (AUTO) 76 K/uL (130-430); RED BLOOD CELL COUNT(AUTO) 3.15 MIL/uL (4.2-6.2); RED CELL DISTRIBUTION WIDTH 15.5 % (9.0-15.0)
[2018-08-01 07:15] LABS: WHITE BLOOD COUNT (AUTO) 0.7 K/uL (4.8-10.8)
[2018-08-01] MEDS: ALPRAZolam 0.25 MG TABLET PO SCH ×3 (08:52→21:11)
[2018-08-01] MEDS: FOLIC ACID 1 MG TABLET PO SCH (08:52)
[2018-08-01] MEDS: PANTOPRAZOLE SODIUM 40 MG TAB PO SCH (08:52)
[2018-08-01 08:53] LABS: BASOPHILS % (MANUAL) 0 % (0-2); EOSINOPHILS % (MANUAL) 0 % (0-7); LYMPHOCYTES % (MANUAL) 92 % (20-46); MONOCYTES % (MANUAL) 4 % (0-11)
[2018-08-01] MEDS: metroNIDAZOLE 500 MG TABLET PO SCH ×4 (08:53→21:12)
[2018-08-01] MEDS: FILGRASTIM 480 MCG/VIAL SUBCUT SCH (08:55)
[2018-08-01] MEDS: ENOXAPARIN SODIUM 40 MG/0.4 ML SYRINGE SUBCUT SCH (08:55)
[2018-08-01] MEDS ORDERED: FILGRASTIM 300 MCG/ML VIAL SUBCUT SCH (09:00)
[2018-08-01] MEDS ORDERED: NACL 0.9% 1,000 ML IV ONE (09:30)
[2018-08-01] MEDS: ACETAMINOPHEN 325 MG TABLET PO PRN (11:32)
[2018-08-01] MEDS: QUEtiapine FUMARATE 100 MG TABLET PO SCH (21:11)
[2018-08-01] MEDS: roPINIRole HCL 0.25 MG ( REQUIP )TABLET PO SCH (21:11)
[2018-08-01] MEDS: OSELTAMIVIR PHOSPHATE 75 MG CAPSULE PO SCH (21:12)
[2018-08-01] MEDS: VANCOMYCIN HCL 1 GM/NS PREMIX 250 ML IV SCH (23:12)
[2018-08-02] VITALS (15 sets, daily range): BP systolic 99–179
[2018-08-02] MEDS: NACL 0.9% 1,000 ML IV SCH ×3 (01:30→16:31)
[2018-08-02] MEDS: MORPHINE 2 MG/ML INJ. SYRINGE IVP PRN ×5 (03:35→21:45)
[2018-08-02] MEDS: CEFEPIME 2 GM in D5W 100 ML IV SCH ×3 (05:02→22:59)
[2018-08-02 06:58] LABS: ALBUMIN 1.8 g/dL (3.4-4.8); CALCIUM 8.1 mg/dL (8.4-11.0); CREATININE 0.59 mg/dL (0.55-1.30); TOTAL BILIRUBIN 0.9 mg/dL (0.0-1.0)
[2018-08-02 06:59] LABS: POTASSIUM 3.5 mmol/L (3.5-5.1)
[2018-08-02] MEDS: ACETAMINOPHEN 325 MG TABLET PO PRN (07:36)
[2018-08-02 07:52] LABS: BASOPHILS % (AUTO) 0.1 % (0.0-2.0); EOSINOPHILS % (AUTO) 0.3 % (0.0-4.0); HEMATOCRIT 33.6 % (36-48); HEMOGLOBIN 11.1 g/dL (12.0-16.0); LYMPHOCYTES # (AUTO) 0.9 K/uL (1.0-5.5); LYMPHOCYTES % (AUTO) 88.9 % (20.5-51.5); MEAN CORPUSCULAR HEMOGLOBIN 32 pg (27-31); MEAN CORPUSCULAR HGB CONC 33 % (32-36); MEAN CORPUSCULAR VOLUME 97 fL (79.0-98.0); MONOCYTES # (AUTO) 0.1 K/uL (0.0-1.0); PLATELET COUNT (AUTO) 74 K/uL (130-430); RED BLOOD CELL COUNT(AUTO) 3.48 MIL/uL (4.2-6.2); RED CELL DISTRIBUTION WIDTH 15.8 % (9.0-15.0)
[2018-08-02 08:43] LABS: NEUTROPHILS % (AUTO) 1.7 % (40.0-70.0)
[2018-08-02] MEDS: METOPROLOL TARTRATE 25 MG TABLET PO SCH ×2 (09:00→20:21)
[2018-08-02] MEDS: FOLIC ACID 1 MG TABLET PO SCH (09:09)
[2018-08-02] MEDS: metroNIDAZOLE 500 MG TABLET PO SCH ×4 (09:09→20:18)
[2018-08-02] MEDS: OSELTAMIVIR PHOSPHATE 75 MG CAPSULE PO SCH ×2 (09:10→20:19)
[2018-08-02] MEDS: PANTOPRAZOLE SODIUM 40 MG TAB PO SCH (09:10)
[2018-08-02] MEDS: ALPRAZolam 0.25 MG TABLET PO SCH ×3 (09:10→20:19)
[2018-08-02] MEDS: ENOXAPARIN SODIUM 40 MG/0.4 ML SYRINGE SUBCUT SCH (09:11)
[2018-08-02] MEDS: FILGRASTIM 480 MCG/VIAL SUBCUT SCH (09:12)
[2018-08-02] MEDS ORDERED: DEXTROSE 50% JECT 50 ML DISP.SYRIN IVP PRN (09:15)
[2018-08-02] MEDS: PREDNISONE 20 MG TABLET PO SCH (09:22)
[2018-08-02] MEDS: INSULIN REGULAR, HUMAN 100 UNITS/ML, 10 ML VIAL (novoLIN R) SUBCUT PRN ×2 (09:51→17:51)
[2018-08-02] MEDS: roPINIRole HCL 0.25 MG ( REQUIP )TABLET PO SCH (20:19)
[2018-08-02] MEDS: ZOLPIDEM TARTRATE 5 MG TABLET PO PRN (21:58)
[2018-08-03] MEDS: NACL 0.9% 1,000 ML IV SCH ×3 (01:30→16:47)
[2018-08-03 01:41] VITALS: BP_SYST 112
[2018-08-03] MEDS: CEFEPIME 2 GM in D5W 100 ML IV SCH ×2 (05:58→14:03)
[2018-08-03] MEDS: MORPHINE 2 MG/ML INJ. SYRINGE IVP PRN ×3 (06:47→16:46)
[2018-08-03 08:03] LABS: BASOPHILS % (AUTO) 0.8 % (0.0-2.0); EOSINOPHILS % (AUTO) 0.2 % (0.0-4.0); HEMATOCRIT 28.5 % (36-48); HEMOGLOBIN 9.5 g/dL (12.0-16.0); LYMPHOCYTES # (AUTO) 0.7 K/uL (1.0-5.5); LYMPHOCYTES % (AUTO) 85.8 % (20.5-51.5); MEAN CORPUSCULAR HEMOGLOBIN 32 pg (27-31); MEAN CORPUSCULAR HGB CONC 33 % (32-36); MEAN CORPUSCULAR VOLUME 95 fL (79.0-98.0); MONOCYTES # (AUTO) 0.1 K/uL (0.0-1.0); MONOCYTES % (AUTO) 11.5 % (1.7-9.3); RED BLOOD CELL COUNT(AUTO) 2.99 MIL/uL (4.2-6.2); RED CELL DISTRIBUTION WIDTH 15.4 % (9.0-15.0)
[2018-08-03 08:06] VITALS: BP_SYST 139
[2018-08-03 08:10] LABS: PLATELET COUNT (AUTO) 46 K/uL (130-430); WHITE BLOOD COUNT (AUTO) 0.8 K/uL (4.8-10.8)
[2018-08-03] MEDS: OSELTAMIVIR PHOSPHATE 75 MG CAPSULE PO SCH ×2 (08:44→20:25)
[2018-08-03] MEDS: ACETAMINOPHEN 325 MG TABLET PO PRN ×2 (08:45→18:13)
[2018-08-03] MEDS: ALPRAZolam 0.25 MG TABLET PO SCH ×3 (08:46→20:25)
[2018-08-03] MEDS: METOPROLOL TARTRATE 25 MG TABLET PO SCH ×2 (08:46→20:24)
[2018-08-03] MEDS: PREDNISONE 20 MG TABLET PO SCH (08:47)
[2018-08-03] MEDS: metroNIDAZOLE 500 MG TABLET PO SCH ×4 (08:47→20:23)
[2018-08-03] MEDS: FOLIC ACID 1 MG TABLET PO SCH (08:47)
[2018-08-03] MEDS: PANTOPRAZOLE SODIUM 40 MG TAB PO SCH (08:47)
[2018-08-03] MEDS: ENOXAPARIN SODIUM 40 MG/0.4 ML SYRINGE SUBCUT SCH (08:48)
[2018-08-03] MEDS: FILGRASTIM 480 MCG/VIAL SUBCUT SCH (09:37)
[2018-08-03 10:44] LABS: NEUTROPHILS % (AUTO) 1.7 % (40.0-70.0)
[2018-08-03 11:24] VITALS: BP_SYST 141
[2018-08-03 15:52] VITALS: BP_SYST 135
[2018-08-03] MEDS ORDERED: LEVOFLOXACIN 250 MG/D5W 50 ML IV ONE (17:00)
[2018-08-03 20:22] VITALS: BP_SYST 152
[2018-08-03] MEDS: roPINIRole HCL 0.25 MG ( REQUIP )TABLET PO SCH (20:25)
[2018-08-03] MEDS: ZOLPIDEM TARTRATE 5 MG TABLET PO PRN (20:35)
[2018-08-04] VITALS: BP_SYST 121
[2018-08-04] MEDS: NACL 0.9% 1,000 ML IV SCH ×3 (01:07→17:43)
[2018-08-04 07:11] LABS: RED CELL DISTRIBUTION WIDTH 15.3 % (9.0-15.0)
[2018-08-04 07:18] LABS: ALBUMIN 1.9 g/dL (3.4-4.8); CALCIUM 8.2 mg/dL (8.4-11.0); CREATININE 0.63 mg/dL (0.55-1.30); TOTAL BILIRUBIN 0.5 mg/dL (0.0-1.0)
[2018-08-04 07:35] LABS: HEMATOCRIT 31.5 % (36-48); HEMOGLOBIN 10.2 g/dL (12.0-16.0); MEAN CORPUSCULAR HEMOGLOBIN 31 pg (27-31); MEAN CORPUSCULAR HGB CONC 33 % (32-36); MEAN CORPUSCULAR VOLUME 95 fL (79.0-98.0); PLATELET COUNT (AUTO) 82 K/uL (130-430); RED BLOOD CELL COUNT(AUTO) 3.31 MIL/uL (4.2-6.2)
[2018-08-04] MEDS: MORPHINE 2 MG/ML INJ. SYRINGE IVP PRN ×4 (07:35→20:03)
[2018-08-04 07:48] LABS: POTASSIUM 2.5 mmol/L (3.5-5.1)
[2018-08-04 07:50] VITALS: BP_SYST 141
[2018-08-04 08:16] LABS: WHITE BLOOD COUNT (AUTO) 1.3 K/uL (4.8-10.8)
[2018-08-04] MEDS: ACETAMINOPHEN 325 MG TABLET PO PRN (08:42)
[2018-08-04] MEDS: ALPRAZolam 0.25 MG TABLET PO SCH ×3 (08:42→21:47)
[2018-08-04] MEDS: metroNIDAZOLE 500 MG TABLET PO SCH (08:43)
[2018-08-04] MEDS: PANTOPRAZOLE SODIUM 40 MG TAB PO SCH (08:43)
[2018-08-04] MEDS: METOPROLOL TARTRATE 25 MG TABLET PO SCH ×2 (08:43→21:46)
[2018-08-04] MEDS: FOLIC ACID 1 MG TABLET PO SCH (08:44)
[2018-08-04] MEDS: OSELTAMIVIR PHOSPHATE 75 MG CAPSULE PO SCH (08:44)
[2018-08-04] MEDS: PREDNISONE 20 MG TABLET PO SCH (08:44)
[2018-08-04] MEDS: LEVOFLOXACIN 250 MG/D5W 50 ML IV SCH (08:46)
[2018-08-04] MEDS: ENOXAPARIN SODIUM 40 MG/0.4 ML SYRINGE SUBCUT SCH (08:48)
[2018-08-04] MEDS: FILGRASTIM 480 MCG/VIAL SUBCUT SCH (08:50)
[2018-08-04] MEDS: POTASSIUM CHLORIDE 20 MEQ TAB.PRT.SR PO SCH ×2 (09:02→21:45)
[2018-08-04 10:09] LABS: BAND % (MANUAL) 0 % (0-6); BASOPHILS % (MANUAL) 0 % (0-2); EOSINOPHILS % (MANUAL) 0 % (0-7); LYMPHOCYTES % (MANUAL) 89 % (20-46); MONOCYTES % (MANUAL) 9 % (0-11)
[2018-08-04 12:11] VITALS: BP_SYST 149
[2018-08-04 16:00] VITALS: BP_SYST 122
[2018-08-04 19:00] VITALS: BP_SYST 138
[2018-08-04 20:00] VITALS: BP_SYST 152
[2018-08-04] MEDS: roPINIRole HCL 0.25 MG ( REQUIP )TABLET PO SCH (21:46)
[2018-08-04] MEDS: ZOLPIDEM TARTRATE 5 MG TABLET PO PRN (21:52)
[2018-08-05 00:44] VITALS: BP_SYST 143
[2018-08-05] MEDS: NACL 0.9% 1,000 ML IV SCH ×3 (01:30→17:30)
[2018-08-05] MEDS: MORPHINE 2 MG/ML INJ. SYRINGE IVP PRN ×4 (05:34→19:29)
[2018-08-05 08:30] VITALS: BP_SYST 134
[2018-08-05 08:45] LABS: BASOPHILS % (AUTO) 0.1 % (0.0-2.0); EOSINOPHILS % (AUTO) 0.2 % (0.0-4.0); HEMOGLOBIN 7.3 g/dL (12.0-16.0); LYMPHOCYTES # (AUTO) 0.9 K/uL (1.0-5.5); LYMPHOCYTES % (AUTO) 70.1 % (20.5-51.5); MEAN CORPUSCULAR HEMOGLOBIN 32 pg (27-31); MEAN CORPUSCULAR HGB CONC 34 % (32-36); MEAN CORPUSCULAR VOLUME 95 fL (79.0-98.0); MONOCYTES # (AUTO) 0.2 K/uL (0.0-1.0); MONOCYTES % (AUTO) 15.7 % (1.7-9.3); PLATELET COUNT (AUTO) 57 K/uL (130-430); RED CELL DISTRIBUTION WIDTH 15.7 % (9.0-15.0)
[2018-08-05 08:48] LABS: WHITE BLOOD COUNT (AUTO) 1.3 K/uL (4.8-10.8)
[2018-08-05 08:49] LABS: HEMATOCRIT 21.9 % (36-48); NEUTROPHILS # (AUTO) 0.2 K/uL (1.8-7.7)
[2018-08-05] MEDS: ENOXAPARIN SODIUM 40 MG/0.4 ML SYRINGE SUBCUT SCH (09:05)
[2018-08-05] MEDS: PREDNISONE 20 MG TABLET PO SCH (09:07)
[2018-08-05] MEDS: METOPROLOL TARTRATE 25 MG TABLET PO SCH ×2 (09:07→20:44)
[2018-08-05] MEDS: ALPRAZolam 0.25 MG TABLET PO SCH ×3 (09:07→20:44)
[2018-08-05] MEDS: POTASSIUM CHLORIDE 20 MEQ TAB.PRT.SR PO SCH ×2 (09:07→20:43)
[2018-08-05] MEDS: FOLIC ACID 1 MG TABLET PO SCH (09:08)
[2018-08-05] MEDS: PANTOPRAZOLE SODIUM 40 MG TAB PO SCH (09:08)
[2018-08-05] MEDS: FILGRASTIM 480 MCG/VIAL SUBCUT SCH (09:09)
[2018-08-05] MEDS: LEVOFLOXACIN 250 MG/D5W 50 ML IV SCH (09:09)
[2018-08-05 09:32] LABS: ALBUMIN 1.2 g/dL (3.4-4.8); CREATININE 0.24 mg/dL (0.55-1.30); TOTAL BILIRUBIN 0.3 mg/dL (0.0-1.0)
[2018-08-05 09:56] LABS: CALCIUM 5.4 mg/dL (8.4-11.0); POTASSIUM 1.8 mmol/L (3.5-5.1)
[2018-08-05] MEDS ORDERED: COMMUNICATION ORDER XX ONE (10:15)
[2018-08-05] MEDS ORDERED: POTASSIUM CHLORIDE 20 MEQ TAB.PRT.SR PO ONE (10:15)
[2018-08-05] MEDS ORDERED: POTASSIUM CHLORIDE 60 MEQ in D5W 500 ML IV ONE (10:30)
[2018-08-05 11:17] LABS: NEUTROPHILS % (AUTO) 13.9 % (40.0-70.0)
[2018-08-05] MEDS ORDERED: SODIUM BICARBONATE 650 MG TABLET PO ONE (12:00)
[2018-08-05 12:15] VITALS: BP_SYST 165
[2018-08-05] MEDS ORDERED: CALCIUM 500 MG/TAB PO ONE (12:15)
[2018-08-05 16:00] VITALS: BP_SYST 155
[2018-08-05 19:10] VITALS: BP_SYST 167
[2018-08-05] MEDS: SODIUM BICARBONATE 650 MG TABLET PO SCH ×2 (19:30→20:49)
[2018-08-05] MEDS: ZOLPIDEM TARTRATE 5 MG TABLET PO PRN (20:43)
[2018-08-05] MEDS: CALCIUM 500 MG/TAB PO SCH (20:44)
[2018-08-05] MEDS: roPINIRole HCL 0.25 MG ( REQUIP )TABLET PO SCH (20:45)
[2018-08-05 22:33] LABS: CREATININE 0.68 mg/dL (0.55-1.30); POTASSIUM 4.4 mmol/L (3.5-5.1)
[2018-08-05 22:57] LABS: PHOSPHORUS 0.9 mg/dL (2.7-4.5)
[2018-08-06 00:04] VITALS: BP_SYST 123
[2018-08-06] MEDS: NACL 0.9% 1,000 ML IV SCH ×2 (01:31→09:30)
[2018-08-06] MEDS: MORPHINE 2 MG/ML INJ. SYRINGE IVP PRN ×4 (02:48→14:55)
[2018-08-06 07:31] LABS: ALBUMIN 1.8 g/dL (3.4-4.8); CALCIUM 8.2 mg/dL (8.4-11.0); CREATININE 0.56 mg/dL (0.55-1.30); TOTAL BILIRUBIN 0.5 mg/dL (0.0-1.0)
[2018-08-06 07:54] LABS: HEMATOCRIT 33.4 % (36-48); HEMOGLOBIN 10.5 g/dL (12.0-16.0); MEAN CORPUSCULAR HEMOGLOBIN 30 pg (27-31); MEAN CORPUSCULAR HGB CONC 32 % (32-36); MEAN CORPUSCULAR VOLUME 94 fL (79.0-98.0); PLATELET COUNT (AUTO) 96 K/uL (130-430); RED BLOOD CELL COUNT(AUTO) 3.55 MIL/uL (4.2-6.2); RED CELL DISTRIBUTION WIDTH 15.4 % (9.0-15.0); WHITE BLOOD COUNT (AUTO) 4.5 K/uL (4.8-10.8)
[2018-08-06 08:00] VITALS: BP_SYST 155
[2018-08-06] MEDS: ALPRAZolam 0.25 MG TABLET PO SCH ×2 (08:50→15:32)
[2018-08-06] MEDS: PANTOPRAZOLE SODIUM 40 MG TAB PO SCH (08:50)
[2018-08-06] MEDS: CALCIUM 500 MG/TAB PO SCH (08:50)
[2018-08-06] MEDS: PREDNISONE 20 MG TABLET PO SCH (08:50)
[2018-08-06] MEDS: FOLIC ACID 1 MG TABLET PO SCH (08:50)
[2018-08-06] MEDS: POTASSIUM CHLORIDE 20 MEQ TAB.PRT.SR PO SCH (08:51)
[2018-08-06] MEDS: SODIUM BICARBONATE 650 MG TABLET PO SCH ×2 (08:51→13:11)
[2018-08-06] MEDS: METOPROLOL TARTRATE 25 MG TABLET PO SCH (08:51)
[2018-08-06] MEDS: ENOXAPARIN SODIUM 40 MG/0.4 ML SYRINGE SUBCUT SCH (08:53)
[2018-08-06] MEDS: FILGRASTIM 480 MCG/VIAL SUBCUT SCH (08:54)
[2018-08-06] MEDS: LEVOFLOXACIN 250 MG/D5W 50 ML IV SCH (08:54)
[2018-08-06 10:13] VITALS: BP_SYST 159
[2018-08-06 11:00] LABS: BAND % (MANUAL) 9 % (0-6); BASOPHILS % (MANUAL) 0 % (0-2); EOSINOPHILS % (MANUAL) 0 % (0-7); LYMPHOCYTES % (MANUAL) 35 % (20-46); MONOCYTES % (MANUAL) 9 % (0-11)
[2018-08-06] MEDS ORDERED: metroNIDAZOLE 500 MG TABLET PO SCH ×2 (11:00)
[2018-08-06 12:13] VITALS: BP_SYST 140
[2018-08-06] MEDS ORDERED: VANCOMYCIN HCL 250 MG CAPSULE PO SCH (15:00)
[2018-08-06] MEDS ORDERED: VANC250C11 PO (16:55)
[2018-08-06] MEDS ORDERED: SACC250C3 PO (16:55)
[2018-08-06] MEDS ORDERED: [UNRECOGNIZED DRUG - CODE] IJ (16:56)
[2018-08-06] MEDS ORDERED: METR500T PO (16:56)
[2018-08-06] MEDS ORDERED: LEVO250T2 PO (16:57)
== END 2018-08-06 17:20 | disposition home or self-care (01) | DRG 871 ==
LOC: SED 17:44 → SMU 19:48 → SIC 21:02 → STU 21:04 → SIC 07-31 01:42 → STU 08-02 12:52
PROVIDERS: ADMIT Internal Medicine; ATTEND Internal Medicine
PROC: 02HV33Z Insertion of Infusion Device into Superior Vena Cava, Percutaneous Approach (ICD-10-PCS; 2018-07-31)
PROC: 30233N1 Transfusion of Nonautologous Red Blood Cells into Peripheral Vein, Percutaneous Approach (ICD-10-PCS; principal; 2018-08-05)
DX: A41.9 Sepsis, unspecified organism (principal); R65.21 Severe sepsis with septic shock; J18.9 Pneumonia, unspecified organism; D61.811 Other drug-induced pancytopenia; J98.11 Atelectasis; A04.72 Enterocolitis due to Clostridium difficile, not specified as recurrent; N39.0 Urinary tract infection, site not specified; K75.4 Autoimmune hepatitis; J44.9 Chronic obstructive pulmonary disease, unspecified; D46.9 Myelodysplastic syndrome, unspecified; E11.9 Type 2 diabetes mellitus without complications; G25.81 Restless legs syndrome; I10 Essential (primary) hypertension; K21.9 Gastro-esophageal reflux disease without esophagitis; R50.81 Fever presenting with conditions classified elsewhere; F32.9 Major depressive disorder, single episode, unspecified; F41.9 Anxiety disorder, unspecified; B34.9 Viral infection, unspecified; K76.89 Other specified diseases of liver; E87.6 Hypokalemia; Z80.3 Family history of malignant neoplasm of breast; Z86.19 Personal history of other infectious and parasitic diseases; Z86.73 Personal history of transient ischemic attack (TIA), and cerebral infarction without residual deficits; Z90.49 Acquired absence of other specified parts of digestive tract; Z90.710 Acquired absence of both cervix and uterus; Z87.81 Personal history of (healed) traumatic fracture; Z79.899 Other long term (current) drug therapy
CPT/HCPCS: 36415; 71045; 80048; 80053; 80202-TC; 81000-TC; 82962; 83036; 83605; 83735-TC; 84100-TC; 84484; 85007; 85025; 85027; 85610-TC; 86710; 86886; 86900; 86901; 86920; 87040-TC; 87081; 87086; 87230-TC; 92610-GN; 93005; 96365; 97110-GP; 97116-GP; 97530-GP; 99285; C1751; G9035; J0692; J0696; J1442; J1450; J1650; J1815; J1956; J2270; J3370; J3480; J7030; J7050; J7060; J7512; P9021

== ENCOUNTER 2018-09-19 12:17 | Emergency (ER) | payer OTHER ==
[~2018-09-19] VITALS: Ht 152.4 cm; Wt 51.7 kg
[~2018-09-19 12:17] MED LIST changes: +LEVO250T2 PO; +METR500T PO; +SACC250C3 PO; +VANC250C11 PO; +[UNRECOGNIZED DRUG - CODE] IJ; +[UNRECOGNIZED DRUG - CODE] PO
[2018-09-19] MEDS ORDERED: NACL 0.9% 1,000 ML IV ONE ×4 (12:21→18:00)
[2018-09-19 12:46] VITALS: BP_SYST 98
[2018-09-19 13:03] LABS: ANION GAP 11 (5-15); CALCIUM 8.5 mg/dL (8.4-11.0); CHLORIDE 105 mmol/L (98-107); CREATININE 0.75 mg/dL (0.55-1.30); GLUCOSE 154 mg/dL (70-99); POTASSIUM 3.2 mmol/L (3.5-5.1); SODIUM SERUM 138 mmol/L (136-145); UREA NITROGEN, BLOOD 7 mg/dL (8-21)
[2018-09-19 13:06] LABS: ALANINE AMINOTRANSFERASE 19 U/L (12-78); AMYLASE 40 U/L (0-100); ASPARTATE AMINOTRANSFERASE 25 U/L (10-37); LIPASE 63 U/L (73-393); TOTAL BILIRUBIN 0.2 mg/dL (0.0-1.0)
[2018-09-19 13:08] LABS: PROTHROMBIN TIME 9.9 SECS (9.5-12.5)
[2018-09-19 13:09] LABS: BASOPHILS % (AUTO) 0.5 % (0.0-2.0); EOSINOPHILS % (AUTO) 0.1 % (0.0-4.0); HEMOGLOBIN 13.5 g/dL (12.0-16.0); LYMPHOCYTES # (AUTO) 1.3 K/uL (1.0-5.5); LYMPHOCYTES % (AUTO) 35.6 % (20.5-51.5); MEAN CORPUSCULAR HEMOGLOBIN 31 pg (27-31); MEAN CORPUSCULAR HGB CONC 33 % (32-36); MEAN CORPUSCULAR VOLUME 95 fL (79.0-98.0); MONOCYTES # (AUTO) 0.4 K/uL (0.0-1.0); MONOCYTES % (AUTO) 10.4 % (1.7-9.3); NEUTROPHILS # (AUTO) 1.9 K/uL (1.8-7.7); NEUTROPHILS % (AUTO) 53.4 % (40.0-70.0); PLATELET COUNT (AUTO) 119 K/uL (130-430); RED BLOOD CELL COUNT(AUTO) 4.32 MIL/uL (4.2-6.2); RED CELL DISTRIBUTION WIDTH 15.1 % (9.0-15.0)
[2018-09-19 13:10] LABS: WHITE BLOOD COUNT (AUTO) 3.6 K/uL (4.8-10.8)
[2018-09-19 14:42] LABS: BILIRUBIN,URINE NEGATIVE (NEGATIVE); BLOOD, URINE 3+ (NEGATIVE); CLARITY/URINE HAZY (CLEAR); COLOR,URINE YELLOW (YELLOW); GLUCOSE,URINE NEGATIVE (NEGATIVE); KETONES,URINE NEGATIVE (NEGATIVE); NITRITE, URINE POSITIVE (NEGATIVE); PROTEIN URINE 2+ (NEGATIVE); UROBILINOGEN,URINE 0.2 (0.2-1.0)
[2018-09-19 15:01] LABS: LEUKOCYTE ESTERASE ,URINE 3+ (NEGATIVE)
[2018-09-19 15:04] LABS: BACTERIA,URINE MANY /HPF (None Seen); MUCUS,URINE None Seen /LPF (None Seen); RBC,URINE 80-100 /HPF (0-3); WBC,URINE 80-100 /HPF (0-3)
--- NOTE | 2018-09-19 15:20 | NUR ---
Patient to ER bed 7 to gown for evaluation. Side rails up. Report given to Hansa MORRISSEY.
[2018-09-19] MEDS ORDERED: cefTRIAXone 1 GM IVPB PREMIX 50 ML IV ONE (15:30)
--- NOTE | 2018-09-19 15:30 | NUR ---
patient in bed with at bedside. will continue to monitor.
--- NOTE | 2018-09-19 15:30 | NUR ---
patient presented with c/o burning on urination. Patient states has history of UTI and had dark urine and blood on wiping post voiding. Patient states has hsitory of bladder/kidney infection, c'diff, cholecystectomy 2012, hysterectomy 2017, prolapsed bladder, carpal tunnel, and tendonitis. 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 Marshall at [facility]. Will continue to monitor.
--- NOTE | 2018-09-19 16:30 | NUR ---
patient in bed, at bedside. will continue to monitor.
[2018-09-19] MEDS ORDERED: MORPHINE 4 MG/ML INJ. SYRINGE IVP ONE (18:00)
--- NOTE | 2018-09-19 18:00 | NUR ---
Per Dr. Brown, would like patient to receive all 4 liters of normal saline. Aware patient receiving 2nd liter.
--- NOTE | 2018-09-19 20:15 | NUR ---
Report given to YUNI White.
[2018-09-19 21:35] VITALS: BP_SYST 124
--- NOTE | 2018-09-19 21:35 | NUR ---
Patient given written and verbal discharge instructions and verbalizes understanding. ER MD discussed with patient the results and treatment provided. Patient in stable condition. ID arm band removed. IV catheter removed intact and dressing applied, no active bleeding. Rx of Tylenol, Keflex and Pyridium given. Patient educated on pain management and to follow up with PMD. Pain Scale 2/10. Opportunity for questions provided and answered. Medication side effect fact sheet provided.
== END 2018-09-19 21:35 | disposition home or self-care (01) ==
LOC: SED 12:17
DX: R30.0 Dysuria (principal); K21.9 Gastro-esophageal reflux disease without esophagitis; R07.89 Other chest pain; F41.9 Anxiety disorder, unspecified; Z90.710 Acquired absence of both cervix and uterus; Z79.899 Other long term (current) drug therapy
CPT/HCPCS: 36415; 71045; 80053; 81000; 82150; 82550; 83605; 83690; 85025; 85610; 85730; 87040; 87086; 87186; 93005; 96365; 96375; 99284; J0696; J2270; J7030

== ENCOUNTER 2018-10-30 13:02 | Inpatient (IN) | payer OTHER ==
[~2018-10-30] VITALS: Ht 152.4 cm; Wt 53.5 kg
[2018-10-30 13:31] VITALS: BP_SYST 127
[2018-10-30] MEDS ORDERED: ASPIRIN 81 MG TAB.CHEW PO ONE (13:45)
[2018-10-30] MEDS ORDERED: NACL 0.9% 1,000 ML IV ONE (13:45)
[2018-10-30 13:58] LABS: EOSINOPHILS % (AUTO) 0.7 % (0.0-4.0); HEMATOCRIT 42.5 % (36-48); LYMPHOCYTES # (AUTO) 0.6 K/uL (1.0-5.5); LYMPHOCYTES % (AUTO) 12.8 % (20.5-51.5); MEAN CORPUSCULAR HEMOGLOBIN 31 pg (27-31); MEAN CORPUSCULAR HGB CONC 33 % (32-36); MEAN CORPUSCULAR VOLUME 95 fL (79.0-98.0); MONOCYTES # (AUTO) 0.1 K/uL (0.0-1.0); NEUTROPHILS # (AUTO) 4.1 K/uL (1.8-7.7); NEUTROPHILS % (AUTO) 83.3 % (40.0-70.0); PLATELET COUNT (AUTO) 79 K/uL (130-430); RED BLOOD CELL COUNT(AUTO) 4.49 MIL/uL (4.2-6.2); RED CELL DISTRIBUTION WIDTH 13.9 % (9.0-15.0); WHITE BLOOD COUNT (AUTO) 4.8 K/uL (4.8-10.8)
[2018-10-30 14:05] LABS: ANION GAP 13 (5-15); CALCIUM 8.7 mg/dL (8.4-11.0); CHLORIDE 106 mmol/L (98-107); GLUCOSE 182 mg/dL (70-99); POTASSIUM 4.1 mmol/L (3.5-5.1); SODIUM SERUM 141 mmol/L (136-145); UREA NITROGEN, BLOOD 12 mg/dL (8-21)
[2018-10-30 14:15] LABS: INR 1.1 (0.8-1.2)
[2018-10-30 14:17] LABS: BLOOD, URINE 3+ (NEGATIVE); CLARITY/URINE HAZY (CLEAR); COLOR,URINE YELLOW (YELLOW); GLUCOSE,URINE NEGATIVE (NEGATIVE); KETONES,URINE TRACE (NEGATIVE); NITRITE, URINE POSITIVE (NEGATIVE); PH,URINE 5.5 (5.0-8.0); PROTEIN URINE 2+ (NEGATIVE)
[2018-10-30 14:19] LABS: ALANINE AMINOTRANSFERASE 25 U/L (12-78); ALBUMIN 3.1 g/dL (3.4-4.8); AMYLASE 35 U/L (0-100); ASPARTATE AMINOTRANSFERASE 19 U/L (10-37); LIPASE 57 U/L (73-393); TOTAL BILIRUBIN 0.3 mg/dL (0.0-1.0)
[2018-10-30 14:27] LABS: BILIRUBIN,URINE NEGATIVE (NEGATIVE); LEUKOCYTE ESTERASE ,URINE 3+ (NEGATIVE)
[2018-10-30 14:29] LABS: BACTERIA,URINE MANY /HPF (None Seen); MUCUS,URINE None Seen /LPF (None Seen); RBC,URINE >100 /HPF (0-3); WBC,URINE >100 /HPF (0-3)
[2018-10-30] MEDS ORDERED: cefTRIAXone 1 GM IVPB PREMIX 50 ML IV ONE (14:30)
[2018-10-30 14:31] LABS: BASOPHILS % (AUTO) 0.2 % (0.0-2.0)
[2018-10-30] MEDS ORDERED: PIPERACILLIN/TAZO 3.375 GM in NS 50 ML IV ONE (15:15)
[2018-10-30] MEDS ORDERED: PIPERACILLIN/TAZOBACTAM 3.375 GM/VIAL (ZOSYN) IV ONE (15:41)
[2018-10-30] MEDS ORDERED: MORPHINE 4 MG/ML INJ. SYRINGE IVP ONE ×2 (15:45→21:15)
[2018-10-30] MEDS ORDERED: ALEN10TA6 PO (16:00)
[2018-10-30] MEDS ORDERED: [UNRECOGNIZED DRUG - CODE] PO (16:00)
[2018-10-30] MEDS ORDERED: ACYC400T PO (16:00)
[2018-10-30] MEDS ORDERED: ALPR0.5T PO (16:00)
[2018-10-30] MEDS ORDERED: QUET300T2 PO (16:00)
[2018-10-30] MEDS ORDERED: ZOLP5TAB2 PO (16:00)
[2018-10-30] MEDS ORDERED: SPIR25TA6 PO (16:00)
[2018-10-30] MEDS ORDERED: PRO40 PO (16:00)
[2018-10-30] MEDS ORDERED: PRED20TA (16:04)
[2018-10-30] MEDS ORDERED: LACT10SO6 PO (16:04)
[2018-10-30] MEDS ORDERED: CEL250 PO (16:04)
[2018-10-30] MEDS ORDERED: RIFA550T5 PO (16:04)
[2018-10-30] MEDS ORDERED: FOLI-43 PO (16:04)
[2018-10-30] MEDS ORDERED: IBUP-1971 PO (16:04)
[2018-10-30 16:38] VITALS: BP_SYST 133
[2018-10-30] MEDS: NACL 0.9% 1,000 ML IV SCH (16:54)
[2018-10-30] MEDS: PIPERACILLIN/TAZO 3.375 GM in NS 50 ML IV SCH ×2 (19:01→23:25)
[2018-10-30 20:00] VITALS: BP_SYST 132
[2018-10-30] MEDS: QUEtiapine FUMARATE 100 MG TABLET PO SCH (21:25)
[2018-10-30] MEDS: ZOLPIDEM TARTRATE 5 MG TABLET PO SCH (21:26)
[2018-10-31 00:32] VITALS: BP_SYST 111
[2018-10-31] MEDS: NACL 0.9% 1,000 ML IV SCH ×3 (01:00→14:45)
[2018-10-31] MEDS ORDERED: MORPHINE 4 MG/ML INJ. SYRINGE IVP ONE (05:45)
[2018-10-31] MEDS: PIPERACILLIN/TAZO 3.375 GM in NS 50 ML IV SCH ×3 (05:48→17:10)
[2018-10-31 06:08] LABS: ALANINE AMINOTRANSFERASE 23 U/L (12-78); ALBUMIN 2.4 g/dL (3.4-4.8); ANION GAP 5 (5-15); ASPARTATE AMINOTRANSFERASE 18 U/L (10-37); CALCIUM 7.3 mg/dL (8.4-11.0); CHLORIDE 109 mmol/L (98-107); CREATININE 0.59 mg/dL (0.55-1.30); GLUCOSE 80 mg/dL (70-99); POTASSIUM 3.6 mmol/L (3.5-5.1); SODIUM SERUM 138 mmol/L (136-145); TOTAL BILIRUBIN 0.3 mg/dL (0.0-1.0); UREA NITROGEN, BLOOD 8 mg/dL (8-21)
[2018-10-31 07:23] LABS: HEMATOCRIT 37.3 % (36-48); HEMOGLOBIN 12.3 g/dL (12.0-16.0); MEAN CORPUSCULAR HEMOGLOBIN 31 pg (27-31); MEAN CORPUSCULAR HGB CONC 33 % (32-36); MEAN CORPUSCULAR VOLUME 94 fL (79.0-98.0); PLATELET COUNT (AUTO) 67 K/uL (130-430); RED BLOOD CELL COUNT(AUTO) 3.95 MIL/uL (4.2-6.2); RED CELL DISTRIBUTION WIDTH 13.4 % (9.0-15.0)
[2018-10-31 07:49] LABS: WHITE BLOOD COUNT (AUTO) 3.6 K/uL (4.8-10.8)
[2018-10-31 08:13] VITALS: BP_SYST 112
[2018-10-31] MEDS: SPIRONOLACTONE 25 MG TABLET (ALDACTONE) PO SCH (09:00)
[2018-10-31] MEDS: MYCOPHENOLATE MOFETIL 250 MG CAPSULE PO SCH ×2 (09:00→20:27)
[2018-10-31] MEDS: PANTOPRAZOLE SODIUM 40 MG TAB PO SCH (09:00)
[2018-10-31] MEDS: IBUPROFEN 800 MG TABLET PO SCH (09:00)
[2018-10-31] MEDS: predniSONE 1 MG TABLET PO SCH (09:00)
[2018-10-31] MEDS: RIFAXIMIN 550 MG TABLET PO SCH ×2 (09:00→20:23)
[2018-10-31] MEDS: LACTULOSE 20 GM/30 ML UDC PO SCH (09:00)
[2018-10-31 09:15] LABS: ATYPICAL LYMPHOCYTES % 0 % (0-0); BAND % (MANUAL) 0 % (0-6); BASOPHILS % (MANUAL) 0 % (0-2); EOSINOPHILS % (MANUAL) 0 % (0-7); LYMPHOCYTES % (MANUAL) 40 % (20-46); MONOCYTES % (MANUAL) 10 % (0-11)
[2018-10-31] MEDS ORDERED: ACETAMINOPHEN/CODEINE 300 MG-30 MG TABLET PO PRN (09:30)
[2018-10-31] MEDS ORDERED: ACYCLOVIR 400 MG TABLET PO SCH (10:00)
[2018-10-31] MEDS ORDERED: LEVOFLOXACIN 250 MG TABLET PO SCH (10:00)
[2018-10-31] MEDS: HYDROcodone/ACETAMIN 5-325 MG TAB (NORCO/ VICODIN) PO PRN (10:19)
[2018-10-31 12:04] VITALS: BP_SYST 117
[2018-10-31] MEDS: AZITHROMYCIN 250 MG TABLET PO SCH (13:30)
[2018-10-31] MEDS ORDERED: metroNIDAZOLE 500 MG TABLET PO SCH (14:00)
[2018-10-31] MEDS ORDERED: AZITHROMYCIN 250 MG TABLET PO ONE (14:15)
[2018-10-31] MEDS: ALPRAZolam 0.25 MG TABLET PO SCH ×2 (14:43→20:23)
[2018-10-31] MEDS ORDERED: VANCOMYCIN HCL 250 MG CAPSULE PO SCH (15:00)
[2018-10-31 16:16] VITALS: BP_SYST 113
[2018-10-31 20:19] VITALS: BP_SYST 133
[2018-10-31] MEDS: roPINIRole HCL 0.25 MG ( REQUIP )TABLET PO SCH (20:22)
[2018-10-31] MEDS: QUEtiapine FUMARATE 100 MG TABLET PO SCH (21:30)
[2018-10-31] MEDS: ZOLPIDEM TARTRATE 5 MG TABLET PO SCH (21:35)
[2018-10-31 23:39] VITALS: BP_SYST 96
[2018-11-01] MEDS: PIPERACILLIN/TAZO 3.375 GM in NS 50 ML IV SCH ×4 (00:04→17:44)
[2018-11-01 08:50] VITALS: BP_SYST 109
[2018-11-01] MEDS: RIFAXIMIN 550 MG TABLET PO SCH ×2 (09:02→20:45)
[2018-11-01] MEDS: ALPRAZolam 0.25 MG TABLET PO SCH ×3 (09:02→20:45)
[2018-11-01] MEDS: LACTULOSE 20 GM/30 ML UDC PO SCH (09:02)
[2018-11-01] MEDS: SPIRONOLACTONE 25 MG TABLET (ALDACTONE) PO SCH (09:04)
[2018-11-01] MEDS: FOLIC ACID 1 MG TABLET PO SCH (09:04)
[2018-11-01] MEDS: AZITHROMYCIN 250 MG TABLET PO SCH (09:05)
[2018-11-01] MEDS: IBUPROFEN 800 MG TABLET PO SCH (09:05)
[2018-11-01] MEDS: MYCOPHENOLATE MOFETIL 250 MG CAPSULE PO SCH ×2 (09:06→20:44)
[2018-11-01] MEDS: PANTOPRAZOLE SODIUM 40 MG TAB PO SCH (09:06)
[2018-11-01] MEDS: predniSONE 1 MG TABLET PO SCH (09:08)
[2018-11-01] MEDS: HYDROcodone/ACETAMIN 5-325 MG TAB (NORCO/ VICODIN) PO PRN (11:17)
[2018-11-01 12:00] VITALS: BP_SYST 120
[2018-11-01] MEDS ORDERED: MORPHINE 4 MG/ML INJ. SYRINGE IVP PRN (13:00)
[2018-11-01] MEDS: MORPHINE 4 MG/ML INJ. SYRINGE IVP PRN ×2 (14:31→20:10)
[2018-11-01 15:46] VITALS: BP_SYST 105
[2018-11-01 18:23] LABS: HEMATOCRIT 39.1 % (36-48); PLATELET COUNT (AUTO) 77 K/uL (130-430)
[2018-11-01 18:36] LABS: HEMOGLOBIN 13.2 g/dL (12.0-16.0); MEAN CORPUSCULAR HEMOGLOBIN 32 pg (27-31); MEAN CORPUSCULAR HGB CONC 34 % (32-36); MEAN CORPUSCULAR VOLUME 94 fL (79.0-98.0); RED BLOOD CELL COUNT(AUTO) 4.18 MIL/uL (4.2-6.2); RED CELL DISTRIBUTION WIDTH 13.3 % (9.0-15.0); WHITE BLOOD COUNT (AUTO) 3.2 K/uL (4.8-10.8)
[2018-11-01 19:00] VITALS: BP_SYST 139
[2018-11-01 20:00] VITALS: BP_SYST 139
[2018-11-01 20:12] LABS: BAND % (MANUAL) 12 % (0-6); BASOPHILS % (MANUAL) 0 % (0-2); EOSINOPHILS % (MANUAL) 0 % (0-7); LYMPHOCYTES % (MANUAL) 16 % (20-46); MONOCYTES % (MANUAL) 14 % (0-11)
[2018-11-01] MEDS: roPINIRole HCL 0.25 MG ( REQUIP )TABLET PO SCH (20:44)
[2018-11-01] MEDS: QUEtiapine FUMARATE 100 MG TABLET PO SCH (20:44)
[2018-11-01] MEDS: ZOLPIDEM TARTRATE 5 MG TABLET PO SCH (20:49)
[2018-11-02] MEDS: PIPERACILLIN/TAZO 3.375 GM in NS 50 ML IV SCH ×3 (00:02→11:17)
[2018-11-02 02:10] VITALS: BP_SYST 110
[2018-11-02] MEDS: MORPHINE 4 MG/ML INJ. SYRINGE IVP PRN ×4 (05:54→20:11)
[2018-11-02 08:00] VITALS: BP_SYST 140
[2018-11-02] MEDS: PANTOPRAZOLE SODIUM 40 MG TAB PO SCH (08:47)
[2018-11-02] MEDS: RIFAXIMIN 550 MG TABLET PO SCH ×2 (08:47→21:05)
[2018-11-02] MEDS: AZITHROMYCIN 250 MG TABLET PO SCH (08:47)
[2018-11-02] MEDS: FOLIC ACID 1 MG TABLET PO SCH (08:47)
[2018-11-02] MEDS: MYCOPHENOLATE MOFETIL 250 MG CAPSULE PO SCH ×2 (08:47→21:03)
[2018-11-02] MEDS: ALPRAZolam 0.25 MG TABLET PO SCH ×3 (08:47→21:05)
[2018-11-02] MEDS: LACTULOSE 20 GM/30 ML UDC PO SCH (08:48)
[2018-11-02] MEDS: SPIRONOLACTONE 25 MG TABLET (ALDACTONE) PO SCH (08:48)
[2018-11-02] MEDS: IBUPROFEN 800 MG TABLET PO SCH (08:48)
[2018-11-02] MEDS ORDERED: PREDNISONE PO ONE (09:00)
[2018-11-02] MEDS ORDERED: PREDNISONE 10 MG TABLET PO ONE ×2 (09:30)
[2018-11-02] MEDS ORDERED: predniSONE 1 MG TABLET PO ONE (09:30)
[2018-11-02 11:30] VITALS: BP_SYST 108
[2018-11-02 16:02] VITALS: BP_SYST 130
[2018-11-02] MEDS: ERTAPENEM SODIUM 1 GM in NS 50 ML IV SCH (18:12)
[2018-11-02 19:00] VITALS: BP_SYST 131
[2018-11-02 20:00] VITALS: BP_SYST 131
[2018-11-02] MEDS: roPINIRole HCL 0.25 MG ( REQUIP )TABLET PO SCH (21:04)
[2018-11-02] MEDS: ZOLPIDEM TARTRATE 5 MG TABLET PO SCH (21:08)
[2018-11-02] MEDS: QUEtiapine FUMARATE 100 MG TABLET PO SCH (21:09)
[2018-11-03 00:23] VITALS: BP_SYST 118
[2018-11-03] MEDS: MORPHINE 4 MG/ML INJ. SYRINGE IVP PRN ×3 (03:22→12:31)
[2018-11-03 07:53] VITALS: BP_SYST 139
[2018-11-03] MEDS ORDERED: predniSONE 1 MG TABLET PO SCH (08:00)
[2018-11-03] MEDS ORDERED: PREDNISONE PO SCH (08:00)
[2018-11-03] MEDS ORDERED: PREDNISONE 10 MG TABLET PO SCH (08:00)
[2018-11-03] MEDS: MYCOPHENOLATE MOFETIL 250 MG CAPSULE PO SCH (08:17)
[2018-11-03] MEDS: FOLIC ACID 1 MG TABLET PO SCH (08:17)
[2018-11-03] MEDS: ALPRAZolam 0.25 MG TABLET PO SCH ×2 (08:17→14:30)
[2018-11-03] MEDS: RIFAXIMIN 550 MG TABLET PO SCH (08:17)
[2018-11-03] MEDS: IBUPROFEN 800 MG TABLET PO SCH (08:18)
[2018-11-03] MEDS: PANTOPRAZOLE SODIUM 40 MG TAB PO SCH (08:18)
[2018-11-03] MEDS: SPIRONOLACTONE 25 MG TABLET (ALDACTONE) PO SCH (08:18)
[2018-11-03] MEDS: AZITHROMYCIN 250 MG TABLET PO SCH (08:18)
[2018-11-03] MEDS: LACTULOSE 20 GM/30 ML UDC PO SCH (08:19)
[2018-11-03] MEDS ORDERED: ALBMDI INH (11:29)
[2018-11-03 11:37] VITALS: BP_SYST 134
[2018-11-03] MEDS: ERTAPENEM SODIUM 1 GM in NS 50 ML IV SCH (13:25)
[2018-11-03 14:06] VITALS: BP_SYST 148
[2018-11-03 15:51] VITALS: BP_SYST 146
[2018-11-07] MEDS ORDERED: ALENDRONATE SODIUM 10 MG TABLET (FOSAMAX) PO SCH (09:00)
== END 2018-11-03 16:15 | disposition home health service (06) | DRG 871 ==
LOC: SED 13:02 → SMU 15:44
PROVIDERS: ADMIT Internal Medicine; ATTEND Internal Medicine
DX: A41.9 Sepsis, unspecified organism (principal); J18.1 Lobar pneumonia, unspecified organism; N39.0 Urinary tract infection, site not specified; K75.4 Autoimmune hepatitis; D46.9 Myelodysplastic syndrome, unspecified; D69.6 Thrombocytopenia, unspecified; E03.9 Hypothyroidism, unspecified; K21.9 Gastro-esophageal reflux disease without esophagitis; G89.29 Other chronic pain; M25.512 Pain in left shoulder; B96.20 Unspecified Escherichia coli [E. coli] as the cause of diseases classified elsewhere; Z16.12 Extended spectrum beta lactamase (ESBL) resistance; F41.9 Anxiety disorder, unspecified; J45.909 Unspecified asthma, uncomplicated; F32.9 Major depressive disorder, single episode, unspecified; G43.909 Migraine, unspecified, not intractable, without status migrainosus; I70.0 Atherosclerosis of aorta; G25.81 Restless legs syndrome; Z90.710 Acquired absence of both cervix and uterus; Z90.49 Acquired absence of other specified parts of digestive tract; Z87.440 Personal history of urinary (tract) infections; Z79.899 Other long term (current) drug therapy; Z79.52 Long term (current) use of systemic steroids
CPT/HCPCS: 36415; 71045; 71046-TC; 76700-TC; 80053; 81000-TC; 82150-TC; 82550-TC; 83690-TC; 84484; 85007; 85025; 85027; 85610-TC; 85730-TC; 87086; 87186-TC; 93005; 96361; 96365; 96375; 99285; J0696; J1335; J2270; J2543; J7030; J7512; J7517; Q0144

== ENCOUNTER 2019-01-04 10:55 | Emergency (ER) | payer OTHER ==
[~2019-01-04] VITALS: Ht 152.4 cm; Wt 50.3 kg
[~2019-01-04 10:55] MED LIST changes: +ACYC400T PO; +ALBMDI INH; +ALEN10TA6 PO; +CEL250 PO; +IBUP-1971 PO; +LACT10SO6 PO; -LEVO250T2 PO; +PRED20TA; +RIFA550T5 PO; +SPIR25TA6 PO; -VANC250C11 PO; -ZOLP10TA2 PO; +ZOLP5TAB2 PO
[2019-01-04 11:00] VITALS: BP_SYST 102
[2019-01-04] MEDS ORDERED: [UNRECOGNIZED DRUG - CODE] PO (11:16)
[2019-01-04] MEDS ORDERED: ALPR0.5T PO (11:16)
[2019-01-04] MEDS ORDERED: FURO-149 PO (11:16)
[2019-01-04] MEDS ORDERED: ZOLP10TA2 PO (11:16)
[2019-01-04] MEDS ORDERED: PRED10TA PO (11:16)
[2019-01-04] MEDS ORDERED: LACT10PA5 PO (11:16)
[2019-01-04] MEDS ORDERED: ALEN10TA6 PO (11:16)
[2019-01-04] MEDS ORDERED: RIFA550T5 PO (11:16)
[2019-01-04] MEDS ORDERED: CEL250 PO (11:16)
[2019-01-04 11:38] LABS: BASOPHILS # (AUTO) 0.1 K/uL (0.0-0.2); BASOPHILS % (AUTO) 1.2 % (0.0-2.0); EOSINOPHILS # (AUTO) 0.1 K/uL (0.0-0.4); EOSINOPHILS % (AUTO) 2.4 % (0.0-4.0); HEMATOCRIT 43.1 % (36-48); HEMOGLOBIN 14.6 g/dL (12.0-16.0); LYMPHOCYTES % (AUTO) 34.4 % (20.5-51.5); MEAN CORPUSCULAR HEMOGLOBIN 31 pg (27-31); MEAN CORPUSCULAR HGB CONC 34 % (32-36); MEAN CORPUSCULAR VOLUME 92 fL (79.0-98.0); MONOCYTES # (AUTO) 0.7 K/uL (0.0-1.0); MONOCYTES % (AUTO) 12.6 % (1.7-9.3); NEUTROPHILS # (AUTO) 2.8 K/uL (1.8-7.7); NEUTROPHILS % (AUTO) 49.4 % (40.0-70.0); PLATELET COUNT (AUTO) 110 K/uL (130-430); RED BLOOD CELL COUNT(AUTO) 4.71 MIL/uL (4.2-6.2); RED CELL DISTRIBUTION WIDTH 14.3 % (9.0-15.0); WHITE BLOOD COUNT (AUTO) 5.7 K/uL (4.8-10.8)
[2019-01-04 11:51] LABS: ANION GAP 7 (5-15); CALCIUM 9.1 mg/dL (8.4-11.0); CHLORIDE 101 mmol/L (98-107); CREATININE 0.78 mg/dL (0.55-1.30); GLUCOSE 103 mg/dL (70-99); SODIUM SERUM 136 mmol/L (136-145); UREA NITROGEN, BLOOD 16 mg/dL (8-21)
[2019-01-04 11:54] LABS: PROTHROMBIN TIME 10.1 SECS (9.5-12.5)
[2019-01-04 11:55] LABS: ALANINE AMINOTRANSFERASE 26 U/L (12-78); ALBUMIN 3.5 g/dL (3.4-4.8); ASPARTATE AMINOTRANSFERASE 28 U/L (10-37); LIPASE 71 U/L (73-393); TOTAL BILIRUBIN 0.7 mg/dL (0.0-1.0)
[2019-01-04 11:57] LABS: POTASSIUM 2.8 mmol/L (3.5-5.1)
[2019-01-04] MEDS ORDERED: POTASSIUM CHLORIDE 20 MEQ/PKT PACKET PO ONE (12:30)
[2019-01-04] MEDS ORDERED: cefTRIAXone 1 GM VIAL IM ONE (12:45)
[2019-01-04] MEDS ORDERED: cefTRIAXone 1 GM in LIDOCAINE 1%, 20 ML MDV 2.1 ML IM ONE (13:00)
[2019-01-04 13:25] VITALS: BP_SYST 100
== END 2019-01-04 13:20 | disposition home or self-care (01) ==
LOC: SED 10:55
DX: E87.6 Hypokalemia (principal); N39.0 Urinary tract infection, site not specified; K21.9 Gastro-esophageal reflux disease without esophagitis; F32.9 Major depressive disorder, single episode, unspecified; F41.9 Anxiety disorder, unspecified; Z79.899 Other long term (current) drug therapy
CPT/HCPCS: 36415; 71045; 80053; 82140; 82550; 83605; 83690; 84484; 85025; 85610; 85730; 87086; 93005; 96372; 99284; J0696; J2001; 87186-TC

== ENCOUNTER 2019-01-06 10:50 | Emergency (ER) | payer OTHER ==
[~2019-01-06] VITALS: Ht 152.4 cm; Wt 50.8 kg
[2019-01-06 10:50] VITALS: BP_SYST 117
[~2019-01-06 10:50] MED LIST changes: +FURO-149 PO; +LACT10PA5 PO; +PRED10TA PO; +ZOLP10TA2 PO
[2019-01-06 11:54] LABS: BASOPHILS % (AUTO) 0.6 % (0.0-2.0); EOSINOPHILS % (AUTO) 0.6 % (0.0-4.0); HEMATOCRIT 44.2 % (36-48); HEMOGLOBIN 14.8 g/dL (12.0-16.0); LYMPHOCYTES # (AUTO) 0.8 K/uL (1.0-5.5); LYMPHOCYTES % (AUTO) 12.3 % (20.5-51.5); MEAN CORPUSCULAR HEMOGLOBIN 31 pg (27-31); MEAN CORPUSCULAR HGB CONC 34 % (32-36); MEAN CORPUSCULAR VOLUME 93 fL (79.0-98.0); MONOCYTES # (AUTO) 0.3 K/uL (0.0-1.0); MONOCYTES % (AUTO) 4.9 % (1.7-9.3); NEUTROPHILS # (AUTO) 5.3 K/uL (1.8-7.7); NEUTROPHILS % (AUTO) 81.6 % (40.0-70.0); PLATELET COUNT (AUTO) 118 K/uL (130-430); RED BLOOD CELL COUNT(AUTO) 4.77 MIL/uL (4.2-6.2); RED CELL DISTRIBUTION WIDTH 14.6 % (9.0-15.0); WHITE BLOOD COUNT (AUTO) 6.5 K/uL (4.8-10.8)
[2019-01-06 12:09] LABS: ANION GAP 7 (5-15); CALCIUM 9.5 mg/dL (8.4-11.0); CHLORIDE 99 mmol/L (98-107); CREATININE 0.83 mg/dL (0.55-1.30); GLUCOSE 103 mg/dL (70-99); POTASSIUM 4.3 mmol/L (3.5-5.1); SODIUM SERUM 133 mmol/L (136-145); UREA NITROGEN, BLOOD 17 mg/dL (8-21)
[2019-01-06 12:24] LABS: ALANINE AMINOTRANSFERASE 24 U/L (12-78); ALBUMIN 3.4 g/dL (3.4-4.8); ASPARTATE AMINOTRANSFERASE 28 U/L (10-37); TOTAL BILIRUBIN 0.5 mg/dL (0.0-1.0)
[2019-01-06 13:00] VITALS: BP_SYST 117
== END 2019-01-06 13:00 | disposition home or self-care (01) ==
LOC: SED 10:50
DX: F41.9 Anxiety disorder, unspecified (principal); N39.0 Urinary tract infection, site not specified; K21.9 Gastro-esophageal reflux disease without esophagitis; F32.9 Major depressive disorder, single episode, unspecified; Z90.710 Acquired absence of both cervix and uterus; Z79.899 Other long term (current) drug therapy
CPT/HCPCS: 36415; 80053; 83605; 85025; 87040-TC; 99283

== ENCOUNTER 2019-03-03 01:36 | Emergency (ER) | payer OTHER ==
[~2019-03-03] VITALS: Ht 152.4 cm; Wt 50.8 kg
--- NOTE | 2019-03-03 02:00 | NUR ---
Patient to ER bed 5 to gown for evaluation. Side rails up.
[2019-03-03 02:03] VITALS: BP_SYST 129
[2019-03-03] MEDS ORDERED: QUET300T2 PO (02:22)
[2019-03-03] MEDS ORDERED: IBUP-1970 PO (02:24)
[2019-03-03] MEDS ORDERED: LACT10SO6 PO (02:27)
[2019-03-03] MEDS ORDERED: CEL250 PO (02:28)
--- NOTE | 2019-03-03 02:30 | NUR ---
Pt came to the ED for dysuria for 1-2 days. Reports that she has been experiencing burning/urgency/ and frequency. Denies any blood in urine. Denies n/v/d or fever. No other complaints/injuries noted. Will cont. to monitor.
--- NOTE | 2019-03-03 02:35 | NUR ---
ER at bedside examining patient.
[2019-03-03 03:28] LABS: BILIRUBIN,URINE NEGATIVE (NEGATIVE); BLOOD, URINE 3+ (NEGATIVE); CLARITY/URINE CLEAR (CLEAR); COLOR,URINE YELLOW (YELLOW); GLUCOSE,URINE NEGATIVE (NEGATIVE); KETONES,URINE NEGATIVE (NEGATIVE); LEUKOCYTE ESTERASE ,URINE 3+ (NEGATIVE); NITRITE, URINE NEGATIVE (NEGATIVE); PH,URINE 6.5 (5.0-8.0); PROTEIN URINE TRACE (NEGATIVE); UROBILINOGEN,URINE 0.2 (0.2-1.0)
[2019-03-03 03:48] LABS: BACTERIA,URINE MANY /HPF (None Seen); RBC,URINE >100 /HPF (0-3); WBC,URINE >100 /HPF (0-3)
[2019-03-03] MEDS ORDERED: PHENAZOPYRIDINE HCL 100 MG TABLET PO ONE (04:00)
[2019-03-03] MEDS ORDERED: CEPHALEXIN 500 MG CAPSULE PO ONE (04:00)
[2019-03-03 04:01] VITALS: BP_SYST 129
--- NOTE | 2019-03-03 04:01 | NUR ---
Patient given written and verbal discharge instructions and verbalizes understanding. ER MD Dr. Jewell discussed with patient the results and treatment provided. Patient in stable condition. ID arm band removed. Rx of keflex and pyridium given. Patient educated on pain management and to follow up with PMD. Pain Scale 0/10. Opportunity for questions provided and answered. Medication side effect fact sheet provided.
== END 2019-03-03 04:01 | disposition home or self-care (01) ==
LOC: SED 01:36
DX: N39.0 Urinary tract infection, site not specified (principal); K21.9 Gastro-esophageal reflux disease without esophagitis; F32.9 Major depressive disorder, single episode, unspecified; F41.9 Anxiety disorder, unspecified; Z79.899 Other long term (current) drug therapy
CPT/HCPCS: 81000; 87086; 87186; 99283; J7030

== ENCOUNTER 2019-05-04 19:32 | Emergency (ER) | payer OTHER ==
[~2019-05-04] VITALS: Ht 152.4 cm; Wt 53.1 kg
[~2019-05-04 19:32] MED LIST changes: -ALBMDI INH; +IBUP-1970 PO; -IBUP-1971 PO; -LACT10PA5 PO; -METR500T PO; -PRED20TA; -ROPI0.5T PO; -SACC250C3 PO; -ZOLP10TA2 PO; -[UNRECOGNIZED DRUG - CODE] IJ
[2019-05-04 19:35] VITALS: BP_SYST 116
[2019-05-04] MEDS ORDERED: NACL 0.9% 1,000 ML IV ONE (20:14)
[2019-05-04] MEDS ORDERED: ONDANSETRON HCL 4 MG/2 ML VIAL IVP ONE ×2 (20:15→21:30)
[2019-05-04] MEDS ORDERED: MORPHINE 2 MG/ML INJ. SYRINGE IVP ONE (20:15)
[2019-05-04 20:18] LABS: BASOPHILS # (AUTO) 0.1 K/uL (0.0-0.2); BASOPHILS % (AUTO) 1.5 % (0.0-2.0); EOSINOPHILS # (AUTO) 0.3 K/uL (0.0-0.4); EOSINOPHILS % (AUTO) 3.8 % (0.0-4.0); HEMATOCRIT 42.6 % (36-48); HEMOGLOBIN 14.8 g/dL (12.0-16.0); LYMPHOCYTES % (AUTO) 27.5 % (20.5-51.5); MEAN CORPUSCULAR HEMOGLOBIN 32 pg (27-31); MEAN CORPUSCULAR HGB CONC 35 % (32-36); MEAN CORPUSCULAR VOLUME 92 fL (79.0-98.0); MONOCYTES # (AUTO) 0.6 K/uL (0.0-1.0); MONOCYTES % (AUTO) 7.6 % (1.7-9.3); NEUTROPHILS # (AUTO) 4.4 K/uL (1.8-7.7); NEUTROPHILS % (AUTO) 59.6 % (40.0-70.0); PLATELET COUNT (AUTO) 120 K/uL (130-430); RED BLOOD CELL COUNT(AUTO) 4.62 MIL/uL (4.2-6.2); RED CELL DISTRIBUTION WIDTH 12.7 % (9.0-15.0); WHITE BLOOD COUNT (AUTO) 7.3 K/uL (4.8-10.8)
[2019-05-04 20:33] LABS: ANION GAP 8 (5-15); CALCIUM 9.4 mg/dL (8.4-11.0); CHLORIDE 103 mmol/L (98-107); CREATININE 0.66 mg/dL (0.55-1.30); GLUCOSE 109 mg/dL (70-99); POTASSIUM 3.1 mmol/L (3.5-5.1); SODIUM SERUM 136 mmol/L (136-145); UREA NITROGEN, BLOOD 9 mg/dL (8-21)
[2019-05-04 20:35] LABS: AMYLASE 41 U/L (0-100); LIPASE 82 U/L (73-393)
[2019-05-04 20:38] LABS: ALANINE AMINOTRANSFERASE 12 U/L (12-78); ALBUMIN 3.5 g/dL (3.4-4.8); ASPARTATE AMINOTRANSFERASE 22 U/L (10-37); TOTAL BILIRUBIN 0.4 mg/dL (0.0-1.0)
[2019-05-04 20:54] LABS: PROTHROMBIN TIME 10.2 SECS (9.5-12.5)
[2019-05-04 20:58] LABS: BILIRUBIN,URINE NEGATIVE (NEGATIVE); BLOOD, URINE 1+ (NEGATIVE); CLARITY/URINE CLOUDY (CLEAR); COLOR,URINE YELLOW (YELLOW); GLUCOSE,URINE NEGATIVE (NEGATIVE); KETONES,URINE TRACE (NEGATIVE); LEUKOCYTE ESTERASE ,URINE 2+ (NEGATIVE); NITRITE, URINE NEGATIVE (NEGATIVE); PROTEIN URINE NEGATIVE (NEGATIVE)
[2019-05-04] MEDS ORDERED: CEL250 PO (20:59)
[2019-05-04] MEDS ORDERED: cefTRIAXone 1 GM IVPB PREMIX 50 ML IV ONE (21:30)
[2019-05-04 21:34] LABS: BACTERIA,URINE MANY /HPF (None Seen); MUCUS,URINE 1+ /LPF (None Seen); WBC,URINE 50-80 /HPF (0-3)
[2019-05-04 22:07] VITALS: BP_SYST 116
== END 2019-05-04 22:10 | disposition home or self-care (01) ==
LOC: SED 19:32
DX: N39.0 Urinary tract infection, site not specified (principal); K21.9 Gastro-esophageal reflux disease without esophagitis; F32.9 Major depressive disorder, single episode, unspecified; F41.9 Anxiety disorder, unspecified; Z90.49 Acquired absence of other specified parts of digestive tract; Z79.899 Other long term (current) drug therapy
CPT/HCPCS: 36415; 80053; 81000; 82150; 83690; 85025; 85610; 87040; 87086; 87186; 96361; 96365; 96375; 96376; 99283; J0696; J2270; J2405

== ENCOUNTER 2019-05-27 13:08 | Inpatient (IN) | payer OTHER ==
[~2019-05-27] VITALS: Ht 152.4 cm; Wt 53.5 kg
[~2019-05-27 13:08] MED LIST changes: -ALEN10TA6 PO; +ALEN10TA7 PO; -FURO-149 PO; -SPIR25TA6 PO
[2019-05-27 13:10] VITALS: BP_SYST 112
--- NOTE | 2019-05-27 13:15 | NUR ---
Patient triaged and placed in waiting room. VSS and patient appears in no acute distress at this time. Accompanied by SPOUSE, awaiting available bed, and MD notified of need for MSE.
--- NOTE | 2019-05-27 14:40 | NUR ---
Patient to ER bed 4 to gown for evaluation. Side rails up.
--- NOTE | 2019-05-27 15:10 | NUR ---
ER Dr. Stevens at bedside examining patient.
[2019-05-27] MEDS ORDERED: NACL 0.9% 1,000 ML IV ONE ×2 (15:15→16:30)
--- NOTE | 2019-05-27 15:15 | NUR ---
Patient presented to ER with generalized weakness, right ankle swelling with pain. Patient A&Ox4, arrived to ER via wheelchair with , afebrile, nausea, pain 03/30, jaswant D/V. Patient states she is feeling weak, with nausea x2 days. Patient states she has health hx of Autoimmune liver disease, migraines and anxiety.
[2019-05-27 15:52] LABS: BASOPHILS # (AUTO) 0.1 K/uL (0.0-0.2); EOSINOPHILS % (AUTO) 0.2 % (0.0-4.0); HEMATOCRIT 42.5 % (36-48); HEMOGLOBIN 14.5 g/dL (12.0-16.0); LYMPHOCYTES # (AUTO) 1.6 K/uL (1.0-5.5); LYMPHOCYTES % (AUTO) 30.8 % (20.5-51.5); MEAN CORPUSCULAR HEMOGLOBIN 32 pg (27-31); MEAN CORPUSCULAR HGB CONC 34 % (32-36); MEAN CORPUSCULAR VOLUME 94 fL (79.0-98.0); MONOCYTES # (AUTO) 0.7 K/uL (0.0-1.0); MONOCYTES % (AUTO) 12.7 % (1.7-9.3); NEUTROPHILS # (AUTO) 2.9 K/uL (1.8-7.7); NEUTROPHILS % (AUTO) 55.3 % (40.0-70.0); PLATELET COUNT (AUTO) 148 K/uL (130-430); RED BLOOD CELL COUNT(AUTO) 4.53 MIL/uL (4.2-6.2); RED CELL DISTRIBUTION WIDTH 13.6 % (9.0-15.0); WHITE BLOOD COUNT (AUTO) 5.3 K/uL (4.8-10.8)
[2019-05-27 15:59] LABS: ANION GAP 7 (5-15); CALCIUM 9.5 mg/dL (8.4-11.0); CHLORIDE 105 mmol/L (98-107); CREATININE 0.58 mg/dL (0.55-1.30); GLUCOSE 98 mg/dL (70-99); POTASSIUM 4.2 mmol/L (3.5-5.1); SODIUM SERUM 137 mmol/L (136-145); UREA NITROGEN, BLOOD 10 mg/dL (8-21)
[2019-05-27 16:02] LABS: INR 1.1 (0.8-1.2); PROTHROMBIN TIME 10.6 SECS (9.5-12.5)
[2019-05-27 16:04] LABS: ALANINE AMINOTRANSFERASE 19 U/L (12-78); ALBUMIN 3.3 g/dL (3.4-4.8); ASPARTATE AMINOTRANSFERASE 26 U/L (10-37); TOTAL BILIRUBIN 0.4 mg/dL (0.0-1.0)
[2019-05-27] MEDS ORDERED: ASPIRIN 81 MG TAB.CHEW PO ONE (16:45)
[2019-05-27] MEDS ORDERED: LORazepam 2 MG/ML VIAL IVP ONE (16:45)
[2019-05-27] MEDS ORDERED: KETOROLAC TROMETHAMINE 30 MG VIAL IVP ONE (16:45)
--- NOTE | 2019-05-27 17:10 | NUR ---
Medication reconciliation completed with information provided by PATIENT. Any prior medication reconciliation on file was reviewed and corrected.
[2019-05-27] MEDS ORDERED: MORPHINE 2 MG/ML INJ. SYRINGE IVP ONE (17:30)
[2019-05-27 17:37] LABS: BILIRUBIN,URINE NEGATIVE (NEGATIVE); BLOOD, URINE 2+ (NEGATIVE); COLOR,URINE YELLOW (YELLOW); GLUCOSE,URINE NEGATIVE (NEGATIVE); KETONES,URINE NEGATIVE (NEGATIVE); NITRITE, URINE NEGATIVE (NEGATIVE); PH,URINE 6.5 (5.0-8.0); PROTEIN URINE NEGATIVE (NEGATIVE)
[2019-05-27 17:46] LABS: CLARITY/URINE HAZY (CLEAR); LEUKOCYTE ESTERASE ,URINE 2+ (NEGATIVE)
[2019-05-27 17:47] LABS: BACTERIA,URINE MANY /HPF (None Seen); MUCUS,URINE None Seen /LPF (None Seen); RBC,URINE NONE SEEN /HPF (0-3); WBC,URINE 20-50 /HPF (0-3)
--- NOTE | 2019-05-27 17:47 | NUR ---
Patient will be admitted to care of DR. GARCIA. Admitted to TELE unit. Will go to room 123A. Belongings list completed. Summary report printed. Report will be given at bedside.
--- NOTE | 2019-05-27 17:48 | NUR ---
Transfer to TELE via ACLS protocol. Licensed nurse present. IV present no signs or symptoms of infiltration.
[2019-05-27 18:00] VITALS: BP_SYST 122
--- NOTE | 2019-05-27 18:00 | NUR ---
ADMISSION NOTES, RECEIVED PT IN ER. PT IS AAOX4, C/O PAIN ON R. FOOT. 12/29 , PT GIVEN PAIN MED IN E.R., VITALS WNL. NO FEVER. DIAGNOSIS IS CHEST PAIN UNDER DR GARCIA. SAFETY PRECAUTION IN PLACE , CALL LIGHT IN REACH. BED IN LOW POSITION, BED ALARM ON . ENCOURAGED TO CALL FOR ASSIST, PAIN MEDS AND ANY CONCERNS. WILL ENDORSE TO NIGHT NURSE.
--- NOTE | 2019-05-27 19:30 | NUR ---
OPENING NOTE Patient and bedside report was received from day shift nurse. AAO x 4, respirations even and unlabored. No s/s of acute distress. Safety and fall precautions in place. Family at bedside. Instructed pt. to use call light for any needs. Educated pt. regarding bed alarm and increased risk for falls. Pt. is agreeable. Will monitor.
--- NOTE | 2019-05-27 21:09 | NUR ---
paged paged for Dr Smith, dialed . s/w Crystal.
--- NOTE | 2019-05-27 21:34 | NUR ---
SPOKE WITH DR. WILKINSON/NEW ORDERS RECEIVED Patient's complaints of severe "9/10" pain to neck, head, and bilateral ankles with ineffective pain control with Morphine were reported to Dr. Wilkinson. Patient's request for home medications, xanax, seroquel and ambien were reported. New orders received for medications. Will carry out. MD was also made aware regarding UA results; stated she will enter antibiotic orders herself.
[2019-05-27] MEDS ORDERED: ZOLPIDEM TARTRATE 5 MG TABLET PO PRN (21:45)
[2019-05-27] MEDS ORDERED: ALPRAZolam 0.25 MG TABLET PO SCH (22:00)
[2019-05-27] MEDS ORDERED: HYDROmorphone 1 MG INJ. 1 MG/ML AMPUL IVP ONE (22:00)
[2019-05-27] MEDS ORDERED: QUEtiapine FUMARATE 100 MG TABLET PO SCH (22:00)
--- NOTE | 2019-05-27 22:22 | NUR ---
DILAUDID Dilaudid 1mg IVP administered as ordered for patient's complaint of severe pain. Educated patient regarding medication and potential side effects. Will continue to monitor.
[2019-05-27] MEDS ORDERED: ONDANSETRON HCL 4 MG/2 ML VIAL IVP PRN (22:45)
[2019-05-27] MEDS ORDERED: ALBUTEROL SULFATE 0.083% 2.5 MG/3 ML VIAL.NEB INH PRN (22:45)
[2019-05-27] MEDS ORDERED: MORPHINE 2 MG/ML INJ. SYRINGE IVP PRN (22:45)
[2019-05-27 23:00] VITALS: BP_SYST 122
[2019-05-27] MEDS: NACL 0.9% 1,000 ML IV SCH (23:30)
[2019-05-27] MEDS ORDERED: CEFEPIME 1 GM in D5W 50 ML IV ONE (23:30)
[2019-05-28] MEDS ORDERED: CEFEPIME 1 GM/VIAL (MAXIPIME) ONE (00:10)
--- NOTE | 2019-05-28 00:12 | NUR ---
MAXIPIME Educated pt. regarding maxipime and potential side effects. Verbalized understanding and is able to teach back. Denies any other needs at this time. Call light with patient. Will monitor.
--- NOTE | 2019-05-28 00:17 | NUR ---
Cardio Consultation Paged Reason for consultation: Chest Pain Was consult called: Yes Person who was notified: Radha Consulting Physician: Dr You; Dr Akins is on-call Residential Monitor Specialty: Manager Employee Relations Ordered By: Dr Smith
[2019-05-28 02:43] VITALS: BP_SYST 120
--- NOTE | 2019-05-28 03:35 | NUR ---
RESTING Patient is resting at this time. No s/s of acute distress. Visible chest rise and fall. Call light with patient. Safety precautions in place. Bed alarm on. Will monitor.
[2019-05-28] MEDS: NACL 0.9% 1,000 ML IV SCH (04:25)
[2019-05-28] MEDS: MORPHINE 4 MG/ML INJ. SYRINGE IVP PRN ×3 (04:37→12:03)
--- NOTE | 2019-05-28 04:42 | NUR ---
MORPHINE GIVEN FOR SEVERE PAIN Patient is awake with complaints of severe pain to her head neck and ankles. Morphine was administered as ordered PRN for severe pain. Educated pt. regarding medication and potential side effects. Verbalized understanding. Instructed pt. to use call light for needs. Bed alarm remains on for safety. Call light with patient. Will monitor.
[2019-05-28 05:45] LABS: ANION GAP 8 (5-15); CALCIUM 8.1 mg/dL (8.4-11.0); CHLORIDE 114 mmol/L (98-107); CREATININE 0.56 mg/dL (0.55-1.30); GLUCOSE 112 mg/dL (70-99); POTASSIUM 3.6 mmol/L (3.5-5.1); SODIUM SERUM 146 mmol/L (136-145); UREA NITROGEN, BLOOD 9 mg/dL (8-21)
[2019-05-28 05:54] LABS: ALANINE AMINOTRANSFERASE 13 U/L (12-78); ALBUMIN 2.6 g/dL (3.4-4.8); ASPARTATE AMINOTRANSFERASE 19 U/L (10-37); TOTAL BILIRUBIN 0.3 mg/dL (0.0-1.0)
[2019-05-28] MEDS ORDERED: PANTOPRAZOLE SODIUM 40 MG TAB PO SCH (07:00)
--- NOTE | 2019-05-28 07:15 | NUR ---
CLOSING NOTE Patient and bedside report was endorsed to day shift nurses, YUIN Barnes and YUNI Mast. Nurses were also made aware to follow up with MD's new orders for SCDs.
[2019-05-28 07:17] LABS: BASOPHILS % (AUTO) 1.2 % (0.0-2.0); EOSINOPHILS % (AUTO) 0.8 % (0.0-4.0); HEMATOCRIT 32.5 % (36-48); HEMOGLOBIN 11.3 g/dL (12.0-16.0); LYMPHOCYTES # (AUTO) 1.4 K/uL (1.0-5.5); LYMPHOCYTES % (AUTO) 39.3 % (20.5-51.5); MEAN CORPUSCULAR HEMOGLOBIN 33 pg (27-31); MEAN CORPUSCULAR HGB CONC 35 % (32-36); MEAN CORPUSCULAR VOLUME 94 fL (79.0-98.0); MONOCYTES # (AUTO) 0.4 K/uL (0.0-1.0); NEUTROPHILS # (AUTO) 1.6 K/uL (1.8-7.7); NEUTROPHILS % (AUTO) 46.7 % (40.0-70.0); PLATELET COUNT (AUTO) 95 K/uL (130-430); RED BLOOD CELL COUNT(AUTO) 3.47 MIL/uL (4.2-6.2); RED CELL DISTRIBUTION WIDTH 13.7 % (9.0-15.0); WHITE BLOOD COUNT (AUTO) 3.5 K/uL (4.8-10.8)
--- NOTE | 2019-05-28 07:59 | NUR ---
Opening Note Patient received awake, alert, and is able to follow commands in bed, no signs of distress noted. Patient on room air breathing evenly and unlabored. Patient complains of migraine but is aware of pain medication schedule. Patient is assisted to breakfast and is currently eating independently. Reinforced safety precautions and use of call light.
[2019-05-28 08:00] VITALS: BP_SYST 121
[2019-05-28] MEDS: LACTULOSE 20 GM/30 ML UDC PO SCH ×2 (08:31→08:40)
[2019-05-28] MEDS ORDERED: PREDNISONE 10 MG TABLET PO SCH (09:00)
[2019-05-28] MEDS ORDERED: ALPRAZolam 0.25 MG TABLET PO SCH (09:00)
[2019-05-28] MEDS ORDERED: RIFAXIMIN 550 MG TABLET PO SCH (09:00)
[2019-05-28] MEDS ORDERED: MYCOPHENOLATE MOFETIL 250 MG CAPSULE PO SCH (09:00)
[2019-05-28] MEDS ORDERED: FOLIC ACID 1 MG TABLET PO SCH (09:00)
[2019-05-28] MEDS: ACYCLOVIR 400 MG TABLET PO SCH ×2 (09:39→13:59)
--- NOTE | 2019-05-28 10:07 | NUR ---
RN Rounds Patient sleeping accompanied by significant other @ bedside. Patient has no complaints of pain @ this time. No signs of distress noted.
[2019-05-28 12:00] VITALS: BP_SYST 128
[2019-05-28] MEDS ORDERED: CEFEPIME 1 GM in D5W 50 ML IV SCH (12:00)
--- NOTE | 2019-05-28 12:21 | NUR ---
RN Rounds Patient resting @ this time. Patient in no signs of distress. Safety precautions reinforced.
[2019-05-28 14:06] VITALS: BP_SYST 142
--- NOTE | 2019-05-28 14:50 | NUR ---
Discharge D/C Patient Patient given medication reconciliation form and D/C instructions. Exit Care provided. Patient verbalized understanding. MD discussed with patient the results and treatment provided. Ambulatory with steady gait for discharge to home. Patient in stable condition, ID band removed. IV catheter removed, intact and dressing applied, no active bleeding. Patient educated on pain management. All belongings sent with patient.
[2019-05-28] MEDS ORDERED: QUEtiapine FUMARATE 100 MG TABLET PO SCH (21:00)
== END 2019-05-28 15:00 | disposition home or self-care (01) | DRG 206 ==
LOC: SED 13:08 → STU 17:33
PROVIDERS: ADMIT Internal Medicine Hospice and Palliative Medicine; ATTEND Internal Medicine Hospice and Palliative Medicine
DX: M94.0 Chondrocostal junction syndrome [Tietze] (principal); N39.0 Urinary tract infection, site not specified; E87.2 Acidosis; R07.89 Other chest pain; K76.9 Liver disease, unspecified; F31.9 Bipolar disorder, unspecified; G43.909 Migraine, unspecified, not intractable, without status migrainosus; J44.9 Chronic obstructive pulmonary disease, unspecified; K21.9 Gastro-esophageal reflux disease without esophagitis; F41.9 Anxiety disorder, unspecified; Z82.49 Family history of ischemic heart disease and other diseases of the circulatory system; Z86.73 Personal history of transient ischemic attack (TIA), and cerebral infarction without residual deficits; Z90.710 Acquired absence of both cervix and uterus; Z90.49 Acquired absence of other specified parts of digestive tract
CPT/HCPCS: 36415; 71045; 80053; 81000-TC; 83605; 84484; 85025; 85610-TC; 85730-TC; 87040-TC; 87086; 87186-TC; 93005; 93306; 96361; 96374; 96375; 99285; G0378; J0692; J1170; J1885; J2060; J2270; J7030; J7060; J7512; J7517

== ENCOUNTER 2019-06-16 14:20 | Emergency (ER) | payer OTHER ==
[~2019-06-16] VITALS: Ht 152.4 cm; Wt 54.4 kg
[2019-06-16 14:26] VITALS: BP_SYST 124
[2019-06-16 15:30] LABS: BILIRUBIN,URINE NEGATIVE (NEGATIVE); BLOOD, URINE 3+ (NEGATIVE); CLARITY/URINE CLOUDY (CLEAR); COLOR,URINE YELLOW (YELLOW); GLUCOSE,URINE NEGATIVE (NEGATIVE); KETONES,URINE NEGATIVE (NEGATIVE); LEUKOCYTE ESTERASE ,URINE 3+ (NEGATIVE); NITRITE, URINE NEGATIVE (NEGATIVE); PH,URINE 5.5 (5.0-8.0); PROTEIN URINE NEGATIVE (NEGATIVE); UROBILINOGEN,URINE 0.2 (0.2-1.0)
[2019-06-16 15:39] LABS: BACTERIA,URINE MANY /HPF (None Seen); MUCUS,URINE None Seen /LPF (None Seen); WBC,URINE >100 /HPF (0-3)
[2019-06-16] MEDS ORDERED: KETOROLAC TROMETHAMINE 60 MG/2 ML VIAL IM ONE (15:45)
[2019-06-16] MEDS ORDERED: cefTRIAXone 1 GM VIAL IM ONE (15:45)
[2019-06-16 16:15] VITALS: BP_SYST 124
== END 2019-06-16 16:15 | disposition home or self-care (01) ==
LOC: SED 14:20
DX: N39.0 Urinary tract infection, site not specified (principal); K21.9 Gastro-esophageal reflux disease without esophagitis; F32.9 Major depressive disorder, single episode, unspecified; F41.9 Anxiety disorder, unspecified; Z79.899 Other long term (current) drug therapy
CPT/HCPCS: 81000; 87086; 87186; 99283; 96372; J0696; J1885

== ENCOUNTER 2019-07-01 16:05 | Emergency (ER) | payer OTHER ==
[~2019-07-01] VITALS: Ht 152.4 cm; Wt 52.6 kg
[2019-07-01 16:24] VITALS: BP_SYST 153
--- NOTE | 2019-07-01 17:45 | NUR ---
Patient to ER bed 08 to gown for evaluation. Side rails up.
--- NOTE | 2019-07-01 17:50 | NUR ---
Pt brought by self,A&Ox4, pt presents to ER with back pain and urinary dicomfort, skin pink and warm,cap refill <3, VSS
--- NOTE | 2019-07-01 17:55 | NUR ---
Dr Stevens at bedside examining patient
[2019-07-01] MEDS ORDERED: NACL 0.9% 1,000 ML IV ONE (18:15)
[2019-07-01] MEDS ORDERED: KETOROLAC TROMETHAMINE 30 MG VIAL IVP ONE (18:15)
--- NOTE | 2019-07-01 18:49 | NUR ---
Pt refused toradol at this time, states onofre snot work for her pain, notified
[2019-07-01 18:54] LABS: BILIRUBIN,URINE NEGATIVE (NEGATIVE); BLOOD, URINE NEGATIVE (NEGATIVE); CLARITY/URINE SL HAZY (CLEAR); COLOR,URINE YELLOW (YELLOW); GLUCOSE,URINE NEGATIVE (NEGATIVE); KETONES,URINE NEGATIVE (NEGATIVE); LEUKOCYTE ESTERASE ,URINE 1+ (NEGATIVE); NITRITE, URINE POSITIVE (NEGATIVE); PROTEIN URINE NEGATIVE (NEGATIVE); UROBILINOGEN,URINE 0.2 (0.2-1.0)
[2019-07-01 19:09] LABS: BACTERIA,URINE MANY /HPF (None Seen); MUCUS,URINE None Seen /LPF (None Seen); RBC,URINE 0-3 /HPF (0-3)
[2019-07-01 19:14] LABS: BASOPHILS % (AUTO) 0.8 % (0.0-2.0); EOSINOPHILS # (AUTO) 0.1 K/uL (0.0-0.4); EOSINOPHILS % (AUTO) 1.4 % (0.0-4.0); HEMATOCRIT 36.7 % (36-48); HEMOGLOBIN 12.6 g/dL (12.0-16.0); LYMPHOCYTES # (AUTO) 1.1 K/uL (1.0-5.5); LYMPHOCYTES % (AUTO) 28.8 % (20.5-51.5); MEAN CORPUSCULAR HEMOGLOBIN 33 pg (27-31); MEAN CORPUSCULAR HGB CONC 34 % (32-36); MEAN CORPUSCULAR VOLUME 96 fL (79.0-98.0); MONOCYTES # (AUTO) 0.4 K/uL (0.0-1.0); MONOCYTES % (AUTO) 9.7 % (1.7-9.3); NEUTROPHILS # (AUTO) 2.2 K/uL (1.8-7.7); NEUTROPHILS % (AUTO) 59.3 % (40.0-70.0); RED BLOOD CELL COUNT(AUTO) 3.82 MIL/uL (4.2-6.2); RED CELL DISTRIBUTION WIDTH 14.9 % (9.0-15.0); WHITE BLOOD COUNT (AUTO) 3.7 K/uL (4.8-10.8)
--- NOTE | 2019-07-01 19:16 | NUR ---
Report given to Luisana MORRISSEY
[2019-07-01 19:18] LABS: ANION GAP 8 (5-15); CHLORIDE 111 mmol/L (98-107); CREATININE 0.65 mg/dL (0.55-1.30); GLUCOSE 113 mg/dL (70-99); POTASSIUM 3.5 mmol/L (3.5-5.1); SODIUM SERUM 143 mmol/L (136-145); UREA NITROGEN, BLOOD 13 mg/dL (8-21)
[2019-07-01 19:24] LABS: ALANINE AMINOTRANSFERASE 31 U/L (12-78); ASPARTATE AMINOTRANSFERASE 31 U/L (10-37); TOTAL BILIRUBIN 0.3 mg/dL (0.0-1.0)
[2019-07-01] MEDS ORDERED: cefTRIAXone 1 GM IVPB PREMIX 50 ML IV ONE (19:30)
[2019-07-01] MEDS ORDERED: MORPHINE 4 MG/ML INJ. SYRINGE IVP ONE (19:30)
[2019-07-01 19:32] LABS: PLATELET COUNT (AUTO) 108 K/uL (130-430)
[2019-07-01 20:45] VITALS: BP_SYST 125
--- NOTE | 2019-07-01 20:45 | NUR ---
Patient given written and verbal discharge instructions and verbalizes understanding. ER MD Dr. Stevens discussed with patient the results and treatment provided. Patient in stable condition. ID arm band removed. IV catheter removed intact and dressing applied, no active bleeding. Rx of ciproflaxin and naprosyn given. Patient educated on pain management and to follow up with PMD. Pain Scale 0/10. Opportunity for questions provided and answered. Medication side effect fact sheet provided.
== END 2019-07-01 20:45 | disposition home or self-care (01) ==
LOC: SED 16:05
DX: N39.0 Urinary tract infection, site not specified (principal); K21.9 Gastro-esophageal reflux disease without esophagitis; R03.0 Elevated blood-pressure reading, without diagnosis of hypertension; F32.9 Major depressive disorder, single episode, unspecified; Z79.899 Other long term (current) drug therapy
CPT/HCPCS: 36415; 80053; 81000; 83605; 85025; 87040; 87086; 87186; 96374; 96375; 99283; J0696; J1885; J2270; J7030

== ENCOUNTER 2019-07-15 19:41 | Emergency (ER) | payer OTHER ==
[~2019-07-15] VITALS: Ht 152.4 cm; Wt 52.6 kg
[2019-07-15 19:58] VITALS: BP_SYST 112
--- NOTE | 2019-07-15 19:58 | NUR ---
Pt ambulatory to bed 6 for evaluation
--- NOTE | 2019-07-15 20:30 | NUR ---
Dr. Stevens bedside for Pt eval
--- NOTE | 2019-07-15 20:35 | NUR ---
Pt BIB Family to ED C/O cough since mid afternoon. Also Pt has generalized body weakness, no fever, no pain. No other injuries and or complaints noted. VSS no s/s of acute distress. Resting on gurney rails up
[2019-07-15 20:45] VITALS: BP_SYST 112
[2019-07-15] MEDS ORDERED: cefTRIAXone 1 GM VIAL IM ONE (20:45)
--- NOTE | 2019-07-15 20:45 | NUR ---
Patient given written and verbal discharge instructions and verbalizes understanding. ER MD discussed with patient the results and treatment provided. Patient in stable condition. ID arm band removed. Rx of Rocephin given. Patient educated on pain management and to follow up with PMD. Pain Scale 0/10 Opportunity for questions provided and answered. Medication side effect fact sheet provided.
[2019-07-16] MEDS ORDERED: ACETAMINOPHEN 120 MG SUPP.RECT RC ONE (03:06)
== END 2019-07-15 20:45 | disposition home or self-care (01) ==
LOC: SED 19:41
DX: J40 Bronchitis, not specified as acute or chronic (principal); K21.9 Gastro-esophageal reflux disease without esophagitis; F32.9 Major depressive disorder, single episode, unspecified; F41.9 Anxiety disorder, unspecified; Z79.899 Other long term (current) drug therapy
CPT/HCPCS: 96372; 99283; J0696

== ENCOUNTER 2019-07-30 13:43 | Emergency (ER) | payer OTHER ==
[~2019-07-30] VITALS: Ht 152.4 cm; Wt 54.4 kg
--- NOTE | 2019-07-30 13:45 | NUR ---
MD Holder at bedside.
[2019-07-30 14:22] VITALS: BP_SYST 106
--- NOTE | 2019-07-30 14:22 | NUR ---
Patient to ER bed HW to gown for evaluation. Side rails up. Report given to YUNI Dumas.
--- NOTE | 2019-07-30 14:23 | NUR ---
CLAUDIA Sánchez at bedside examining patient.
--- NOTE | 2019-07-30 14:23 | NUR ---
Patient arrived via POV, AAOx4, and ambulatory with steady gait. Patient c/c of urinary symptoms. Pain and burning upon urination, patient has frequent UTIs after bladder prolapse surgery. Patient states mild cramping and low back pain present. Patient states frequency and feeling like she has to urinate even after she just did. Will continue to follow up and monitor.
--- NOTE | 2019-07-30 15:00 | NUR ---
Pt placed in hallway 1. pt has Urinary problem. pt is alert and stable.
[2019-07-30] MEDS ORDERED: cefTRIAXone 1 GM in LIDOCAINE 1%, 20 ML MDV 2.1 ML IM ONE (15:45)
[2019-07-30 15:59] VITALS: BP_SYST 110
[2019-07-30 16:03] LABS: BILIRUBIN,URINE NEGATIVE (NEGATIVE); CLARITY/URINE CLOUDY (CLEAR); COLOR,URINE YELLOW (YELLOW); GLUCOSE,URINE NEGATIVE (NEGATIVE); KETONES,URINE NEGATIVE (NEGATIVE); LEUKOCYTE ESTERASE ,URINE 3+ (NEGATIVE); NITRITE, URINE NEGATIVE (NEGATIVE); PH,URINE 6.5 (5.0-8.0); PROTEIN URINE TRACE (NEGATIVE); UROBILINOGEN,URINE 0.2 (0.2-1.0)
--- NOTE | 2019-07-30 16:04 | NUR ---
Patient given written and verbal discharge instructions and verbalizes understanding. ER MD discussed with patient the results and treatment provided. Patient in stable condition. ID arm band removed. Rx of Pyridium and Macrobid given. Patient educated on pain management and to follow up with PMD. Pain Scale 3/10. Opportunity for questions provided and answered. Medication side effect fact sheet provided.
[2019-07-30 16:07] LABS: BLOOD, URINE TRACE (NEGATIVE)
[2019-07-30 16:11] LABS: BACTERIA,URINE MANY /HPF (None Seen); RBC,URINE 0-3 /HPF (0-3); WBC,URINE >100 /HPF (0-3)
[2019-07-30 16:12] LABS: MUCUS,URINE None Seen /LPF (None Seen)
== END 2019-07-30 15:59 | disposition home or self-care (01) ==
LOC: SED 13:43
DX: N39.0 Urinary tract infection, site not specified (principal); F41.9 Anxiety disorder, unspecified; F32.9 Major depressive disorder, single episode, unspecified; Z79.899 Other long term (current) drug therapy; Z90.49 Acquired absence of other specified parts of digestive tract
CPT/HCPCS: 81000; 87086; 87186; 96372; 99283; J0696; J2001; J7030

== ENCOUNTER 2019-09-23 10:14 | Emergency (ER) | payer OTHER ==
[~2019-09-23] VITALS: Ht 152.4 cm; Wt 54.4 kg
[2019-09-23 10:19] VITALS: BP_SYST 130
[2019-09-23] MEDS ORDERED: NACL 0.9% 1,000 ML IV ONE (11:09)
--- NOTE | 2019-09-23 11:10 | NUR ---
Pt to bed 3 via wheelchair. placed on monitor.
[2019-09-23] MEDS ORDERED: KETOROLAC TROMETHAMINE 30 MG VIAL IVP ONE (11:15)
[2019-09-23] MEDS ORDERED: ONDANSETRON HCL 4 MG/2 ML VIAL IVP ONE (11:15)
--- NOTE | 2019-09-23 11:21 | NUR ---
In/out cath done per pt request, urine sent to lab
--- NOTE | 2019-09-23 11:29 | NUR ---
ER Dr. Queen at bedside examining patient.
[2019-09-23 11:32] LABS: BASOPHILS # (AUTO) 0.1 K/uL (0.0-0.2); BASOPHILS % (AUTO) 0.8 % (0.0-2.0); EOSINOPHILS # (AUTO) 0.1 K/uL (0.0-0.4); EOSINOPHILS % (AUTO) 0.5 % (0.0-4.0); HEMATOCRIT 45.4 % (36-48); HEMOGLOBIN 15.8 g/dL (12.0-16.0); LYMPHOCYTES # (AUTO) 1.9 K/uL (1.0-5.5); MEAN CORPUSCULAR HEMOGLOBIN 33 pg (27-31); MEAN CORPUSCULAR HGB CONC 35 % (32-36); MEAN CORPUSCULAR VOLUME 95 fL (79.0-98.0); MONOCYTES % (AUTO) 7.2 % (1.7-9.3); NEUTROPHILS # (AUTO) 11.2 K/uL (1.8-7.7); NEUTROPHILS % (AUTO) 78.5 % (40.0-70.0); PLATELET COUNT (AUTO) 136 K/uL (130-430); RED BLOOD CELL COUNT(AUTO) 4.78 MIL/uL (4.2-6.2); RED CELL DISTRIBUTION WIDTH 14.2 % (9.0-15.0); WHITE BLOOD COUNT (AUTO) 14.3 K/uL (4.8-10.8)
--- NOTE | 2019-09-23 11:40 | NUR ---
PATIENT PRESENTS TO THE ER WITH HX OF NAUSEA WITH FULL BODY PAIN AND DIZZINESS TODAY; NOTED THE CHANGE IN BEHAVIOR AND WAS GOING TO PHONE 911 BUT BROUGHT PATIENT BY PRIVATE CAR; NO TRAUMA, NO OTHER REMARKABLE S/S, PATIENT TO ER #3 AT 1110 AND ERMD EVALUATION AT 1130
--- NOTE | 2019-09-23 11:41 | NUR ---
#20 SALINE LOCK TO RIGHT FOREARM
[2019-09-23 11:44] LABS: ANION GAP 13 (5-15); CALCIUM 8.7 mg/dL (8.4-11.0); CHLORIDE 101 mmol/L (98-107); CREATININE 0.79 mg/dL (0.55-1.30); GLUCOSE 119 mg/dL (70-99); SODIUM SERUM 134 mmol/L (136-145); UREA NITROGEN, BLOOD 7 mg/dL (8-21)
[2019-09-23 11:48] LABS: ALANINE AMINOTRANSFERASE 26 U/L (12-78); ALBUMIN 3.7 g/dL (3.4-4.8); ASPARTATE AMINOTRANSFERASE 34 U/L (10-37); LIPASE 38 U/L (73-393); TOTAL BILIRUBIN 0.8 mg/dL (0.0-1.0)
[2019-09-23 11:49] LABS: POTASSIUM 2.8 mmol/L (3.5-5.1)
--- NOTE | 2019-09-23 12:16 | NUR ---
REASSESSMENT; PATIENT STATES IMPROVEMENT; BODY ACHES RESOLVED ONLY FRONTAL HEADACHE REMAINS; DISPOSITION PENDING
[2019-09-23 12:20] LABS: BLOOD, URINE NEGATIVE (NEGATIVE); CLARITY/URINE SL CLOUDY (CLEAR); COLOR,URINE YELLOW (YELLOW); GLUCOSE,URINE NEGATIVE (NEGATIVE); KETONES,URINE 2+ (NEGATIVE); LEUKOCYTE ESTERASE ,URINE 1+ (NEGATIVE); NITRITE, URINE POSITIVE (NEGATIVE); PROTEIN URINE NEGATIVE (NEGATIVE)
[2019-09-23 12:40] LABS: BILIRUBIN,URINE NEGATIVE (NEGATIVE)
[2019-09-23 12:43] LABS: BACTERIA,URINE MANY /HPF (None Seen); MUCUS,URINE 1+ /LPF (None Seen); RBC,URINE 0-3 /HPF (0-3); WBC,URINE 50-80 /HPF (0-3)
[2019-09-23] MEDS ORDERED: POTASSIUM CHLORIDE 20 MEQ TAB.PRT.SR PO ONE (12:45)
--- NOTE | 2019-09-23 13:25 | NUR ---
HEADACHE PAIN REMAINS, REASSESSMENT BY ERMD; ORDERS EXECUTED
--- NOTE | 2019-09-26 19:05 | NUR ---
PATIENT DISCHARGED AT 1600 WITH CAREGIVER, IV OUT AND DRESSED; ACI GIVEN AND PATIENT INDICATED FULL UNDERSTANDING; DISCHARGED AMBULATORY; IMPROVED
[2019-09-26 19:07] VITALS: BP_SYST 113
== END 2019-09-23 19:07 | disposition home or self-care (01) ==
LOC: SED 10:14
DX: N39.0 Urinary tract infection, site not specified (principal); K21.9 Gastro-esophageal reflux disease without esophagitis; F32.9 Major depressive disorder, single episode, unspecified; F41.9 Anxiety disorder, unspecified; Z79.899 Other long term (current) drug therapy
CPT/HCPCS: 36415; 74176; 80053; 81000; 83690; 85025; 87086; 87186; 96361; 96374; 96375; 99284; J1885; J2405; J7030

== ENCOUNTER 2019-09-24 18:05 | Emergency (ER) | payer OTHER ==
[~2019-09-24] VITALS: Ht 152.4 cm; Wt 54.4 kg
[2019-09-24 18:55] VITALS: BP_SYST 104
--- NOTE | 2019-09-24 20:43 | NUR ---
Pt ambulatory to bed 5 for evaluation
--- NOTE | 2019-09-24 20:43 | NUR ---
Pt c/o migraine H/A with photophobia and nausea, worsening since yesterday . Pt has hx of migraines and takes Fiorecet, last dose this AM with no relief.
--- NOTE | 2019-09-24 21:10 | NUR ---
Dr. Bailey at bedside to assess pt.
[2019-09-24] MEDS ORDERED: NS 500 ML IV ONE (21:30)
[2019-09-24] MEDS ORDERED: KETOROLAC TROMETHAMINE 30 MG VIAL IVP ONE (21:30)
[2019-09-24] MEDS ORDERED: DIPHENHYDRAMINE INJ 50 MG/ML VIAL IVP ONE (21:30)
[2019-09-24] MEDS ORDERED: PROCHLORPERAZINE EDISYLATE 10 MG/2 ML VIAL IVP ONE (21:30)
--- NOTE | 2019-09-24 22:07 | NUR ---
Note undone in EDM - 09/24/19 at 2328 by DEVON # gauge angiocath placed to RAC. Use of asceptic technique. Opsite placed over site. Blood return noted. Blood for lab drawn from site. Flushed with 10 cc of normal saline. No evidence of infiltration noted. Patient tolerated well.
--- NOTE | 2019-09-24 22:07 | NUR ---
# 22 gauge angiocath placed to RAC. Use of asceptic technique. Opsite placed over site. Blood return noted. Blood for lab drawn from site. Flushed with 10 cc of normal saline. No evidence of infiltration noted. Patient tolerated well.
[2019-09-24 23:04] VITALS: BP_SYST 112
--- NOTE | 2019-09-24 23:04 | NUR ---
Patient given written and verbal discharge instructions and verbalizes understanding. ER MD discussed with patient the results and treatment provided. Patient in stable condition. ID arm band removed. IV catheter removed intact and dressing applied, no active bleeding. Rx of Zofran given. Patient educated on pain management and to follow up with PMD. Pain Scale 0/10. Opportunity for questions provided and answered. Medication side effect fact sheet provided.
== END 2019-09-24 23:04 | disposition home or self-care (01) ==
LOC: SED 18:05
DX: G43.909 Migraine, unspecified, not intractable, without status migrainosus (principal); K21.9 Gastro-esophageal reflux disease without esophagitis; F32.9 Major depressive disorder, single episode, unspecified; F41.9 Anxiety disorder, unspecified; Z79.899 Other long term (current) drug therapy
CPT/HCPCS: 96374; 96375; 99283; J0780; J1200; J1885; J7040

== ENCOUNTER 2023-10-16 09:01 | Outpatient (CLI) | payer OTHER ==
[~2023-10-16 09:01] MED LIST changes: -ACYC400T PO; +ACYC400T19 PO; +ALEN10TA25 PO; -ALEN10TA7 PO
[2023-10-16] MEDS ORDERED: BARIUM SULFATE 135 ML SUSP.RECON (E-Z-HD) PO ONE (09:24)
== END 2023-10-16 17:59 | disposition home or self-care (01) ==
LOC: SRD 09:01
PROVIDERS: ATTEND Internal Medicine Gastroenterology
DX: K44.9 Diaphragmatic hernia without obstruction or gangrene (principal); K21.9 Gastro-esophageal reflux disease without esophagitis; R13.10 Dysphagia, unspecified
CPT/HCPCS: 74220-TC